=== PATIENT | female | born 1960 | race Caucasian/White ===

== ENCOUNTER → 2016-06-02 | Outpatient (CLI) | payer BC ==
--- NOTE | 2016-06-02 16:00 | MR ---
MR lumbar spine wo con Radiculopathy, lumbosacral region Multiplanar, multiecho imaging of the lumbar spine was obtained without contrast on a 3 Barbara magnet. REFERENCE:None. FINDINGS: The paraspinal soft tissues are unremarkable. There is a moderate levoscoliosis. Vertebral body height is maintained. There is a degenerative grade 1 spondylolisthesis of L3 on L4 an d to a lesser extent L4 on L5. Alignment is otherwise maintained. Cord signal is maintained. The conus ends normally at the level of the mid body of L1. At T12-L1, there is mild capsulitis within the facets. At L1-2, there is mild disc space loss. The intervertebral foramina appear reasonably well-maintained . There is no significant compressive discopathy. There is mild hypertrophic changes within the facet s. There is minimal trefoiling of the thecal sac. At L2-3, the intervertebral foramina are reasonably well-maintained. There is disc space loss and dis c desiccation. There is a broad-based disc displacement effacing the thecal sac. There is moderate hy pertrophic changes within the facets. There is mild central canal stenosis. At L3-4, there is disc space loss and disc desiccation. The intervertebral foramina appear well maint ained. There is a grade 1 degenerative spondylolisthesis of L3 on L4. There is a prominent pseudodisc . There are marked hypertrophic changes in the facets. There is moderate central canal stenosis. At L4-5, the intervertebral foramina are reasonably well-maintained. There is a minimal grade 1 spond ylolisthesis of L4 on L5. There is a pseudodisc. There are moderate hypertrophic changes in the facet s. There is moderate central canal stenosis. At L5-S1, there is disc space loss and disc desiccation. Intervertebral foramina appear well maintain ed. There is a right paracentral disc protrusion/extrusion abutting the exiting L5 nerve root on the right and displacing the traversing S1 nerve root on the right. There are only mild degenerative landry ges in the facets. IMPRESSION: 1. DIFFUSE DEGENERATIVE DISC DISEASE AND FACET ARTHROPATHY. 2. VARYING DEGREES OF CENTRAL CANAL COMPROMISE, MOST MARKED AT L3-4. 3. RIGHT PARACENTRAL PROTRUSION/EXTRUSION, L5-S1 ABUTTING THE EXITING L5 NERVE ROOT ON THE RIGHT AND DISPLACING THE TRAVERSING S1 NERVE ROOT ON THE RIGHT. 4. GRADE 1 DEGENERATIVE SPONDYLOLISTHESIS OF L3 ON L4 AND TO A LESSER EXTENT L4 AND L5.
== END | disposition home or self-care (01) ==
LOC: RADMRIMAIN 14:54
PROVIDERS: ATTEND Psychiatry & Neurology Neurology
DX: M51.16 Intervertebral disc disorders with radiculopathy, lumbar region (principal); M43.16 Spondylolisthesis, lumbar region
CPT/HCPCS: 72148

== ENCOUNTER → 2016-09-24 | Outpatient (CLI) | payer BC ==
[2016-09-24 08:38] LABS: Basophils % (A) 1 %; CH 30.7; CHCM 32.7; Eosinophils # (A) 0.2 k/uL (0-0.7); Eosinophils % (A) 4 %; HCT 42.5 % (34.0-46.0); HDW 2.16; HGB 13.8 gm/dL (11.4-16.0); Luc # (Auto) 0.09; Luc % (Auto) 2; Lymphocytes % (A) 26 %; MCH 30.6 pg (25.0-35.0); MCHC 32.4 g/dL (31.0-37.0); MCV 94.4 fL (80.0-100.0); Mean Platelet Volume 6.7; Monocytes # (A) 0.3 k/uL (0-1.0); Monocytes % (A) 7 %; Neutrophils # (A) 2.3 k/uL (1.3-7.7); Neutrophils % (A) 60 %; RDW 13.5 % (11.5-15.5); WBC 3.9 k/uL (3.8-10.6); WBC (Perox) 3.97
[2016-09-24 08:55] LABS: ALT 39 U/L (9-52); AST 25 U/L (14-36); Alkaline Phosphatase 54 U/L (38-126); Anion Gap 9 mmol/L; Blood Urea Nitrogen 25 mg/dL (7-17); Calcium 7.3 mg/dL (8.4-10.2); Carbon Dioxide 31 mmol/L (22-30); Chloride 104 mmol/L (98-107); Glucose 85 mg/dL (74-99); Non-African American GFR(MDRD) >60 (>60 ml/min/1.73 sqM); Potassium 3.5 mmol/L (3.5-5.1); Sodium 144 mmol/L (137-145); Total Bilirubin 0.5 mg/dL (0.2-1.3); Total Protein 7.1 g/dL (6.3-8.2)
== END | disposition home or self-care (01) ==
LOC: LABWHC1 08:05
PROVIDERS: ATTEND Psychiatry & Neurology Neurology
DX: Z51.81 Encounter for therapeutic drug level monitoring (principal); Z79.899 Other long term (current) drug therapy
CPT/HCPCS: 36415; 80053; 80175; 85025

== ENCOUNTER → 2017-09-21 | Outpatient (CLI) | payer BC ==
--- NOTE | 2017-09-21 19:13 | CONS ---
CONSULTATION REASON FOR THE CONSULTATION: Sleep apnea. This is a 57-year-old female patient who is coming in with chief complaints of excessive sleepiness and tiredness and fatigue during the day. The patient reports that she has been snoring loudly and she wakes up gasping. She is also noticing that she is waking up frequently in the middle of the night to go to the bathroom and urinate. On a few instances she has woken up gasping for air and she has coughed, and it was quite a scary experience where the patient was having a choking/gasping sensation and she was becoming tachycardic. She has gained about 15 pounds over the past few years. She has loud snoring. Her current Dearing score is 3. She does not take naps during the day, although she feels very tired and sleepy. She prefers to sleep on her side. She has no sleep paralysis, no hallucinations, no cataplexy, no substance abuse, no head trauma. She has been involved in a previous history of CVA. She had tonsillectomy at a young age. PAST MEDICAL HISTORY: 1. CVA back in 2005 with some residual issues with balance and memory. 2. Hypertension. 3. Hypothyroidism. 4. Environmental allergies. 5. Seizure disorder. SURGICAL HISTORY: 1. Tonsillectomy. 2. Thyroidectomy. DRUG ALLERGIES: 1. PENICILLINS cause hives. 2. MOLDS. 3. DUST. 4. POLLEN. OUTPATIENT MEDICATION LIST: 1. Lamictal 150 mg p.o. twice a day. 2. Hydrochlorothiazide one and a half tablets of 25 mg 1 tablet a day. 3. Potassium 20 mEq p.o. daily. 4. half a tablet 3 times a day. 5. Calcitriol 0.25 mg twice a day. 6. Vitamin D twice a day. 7. 150 mg once a day. 8. Synthroid 120 mcg p.o. daily. 9. Aspirin 81 mg p.o. daily. 10.Aggrenox 200/25 one tablet twice a day. 11.Norvasc 10 mg p.o. daily. SOCIAL HISTORY: Nonsmoker. No history of alcoholism. No history of IV drugs. FAMILY HISTORY: Negative. The patient does not have any kids. No history of any sleep breathing disorder that runs in the family. REVIEW OF SYSTEMS: Twelve-point review of systems was done. Positive findings are all mentioned above in the history of present illness. In addition, no reported history of insomnia. Active nocturia, as the patient gets up at least 3 times to go to the bathroom and her sleep is fragmented in this regard. She has no grinding of the teeth. No sleepwalking. No anxiety or panic attacks. No palpitation. No heartburn. No restlessness in the lower extremities. PHYSICAL EXAMINATION: BP is 155/85, pulse 86, respirations 14, temperature 97.9, saturation 97% on room air. Height is 5 feet 7 inches, weight 174. Neck size is 13 inches. Dearing score is 3. BMI is 27.2. GENERAL APPEARANCE: Calm, comfortable. Head is atraumatic, normocephalic. Neck is short, supple. Crowding of posterior pharynx. Mallampati class 4. No goiter or neck masses. LUNGS: Clear to auscultation. Heart sounds are regular rate and rhythm. Normal S1, S2. No S3. No murmurs. ABDOMEN: Soft, nontender. No organomegaly. EXTREMITIES: No edema. No cyanosis or clubbing. IMPRESSION: 1. Hypersomnia, under investigation. Rule out obstructive sleep apnea. 2. Episodic gasping and nocturnal apneas. Rule out JESSEE. 3. Cerebrovascular accident with some residual memory and balance deficits. 4. Hypertension. 5. Hypothyroidism. 6. Environmental allergies. 7. Seizure disorder. PLAN: 1. Encourage weight loss. 2. Sleep in a sidewise body position. 3. Implement good sleep hygiene measures. 4. Proceed with a screening polysomnogram, looking for any significant sleep apnea, and treat accordingly. MMODL / IJN: [id number] /
== END | disposition home or self-care (01) ==
LOC: SLEEP 16:10
PROVIDERS: ATTEND Internal Medicine Critical Care Medicine
DX: G47.10 Hypersomnia, unspecified (principal); R06.83 Snoring; I69.311 Memory deficit following cerebral infarction; I10 Essential (primary) hypertension; E03.9 Hypothyroidism, unspecified; G40.909 Epilepsy, unspecified, not intractable, without status epilepticus; J30.1 Allergic rhinitis due to pollen; Z98.890 Other specified postprocedural states; Z91.048 Other nonmedicinal substance allergy status; Z88.0 Allergy status to penicillin; Z79.82 Long term (current) use of aspirin; Z79.899 Other long term (current) drug therapy
CPT/HCPCS: 99211

== ENCOUNTER → 2018-01-17 | Outpatient (CLI) | payer BC ==
--- NOTE | 2018-01-17 17:44 | SFUN ---
SLEEP CENTER FOLLOW UP NOTE DATE OF SERVICE: 01/17/2018. HISTORY: A 57-year-old female patient diagnosed as having severe obstructive sleep apnea, coming in for a compliancy check. The patient was diagnosed having JESSEE with an AHI of 32, and she was given CPAP at a pressure of 7 cm of water. On today's evaluation, the patient reports marked improvement in her symptoms in general. Her sleep quality is improved and she is waking up much more alert and refreshed during the day. Nevertheless, I looked at the compliance data the patient is having excessive amount of leaks in the order of 68 L/minute while being on CPAP therapy. She is using her CPAP every night, using CPAP around 100% of the time especially for CPAP use of more than 4 hours. Average CPAP is around 5.2 hours per night. Leak factor 68 L/minute and her AHI while on treatment is down to 18. I think the residual obstructive events are occurring because the patient is leaking excessively. Meanwhile, the patient is trying to lose weight. Her [place] score is down to 2. She is feeling refreshed and alert during the day. She is currently using the Air Touch full face mask. REVIEW OF SYSTEMS: A 12-point review of system was done. Improving, less somnolent and sleepy. No sleepwalking or sleep talking. No nighttime shortness of breath, chest pain, heartburn or any other abnormalities. PHYSICAL EXAMINATION: BP is 132/89, pulse 84, respirations 14, temperature is 97.8, weight is 174, [place] Score is 2, saturation 97% on room air. GENERAL APPEARANCE: Calm, comfortable. HEAD: Normocephalic, atraumatic. NECK: Mallampati class IV. There is no goiter, no neck mass. LUNGS: Clear to auscultation. HEART: Sounds regular rhythm. Normal S1, S2. No S3. No murmurs. ABDOMEN: Soft, nontender. No organomegaly. EXTREMITIES: No edema. No cyanosis or clubbing. NEUROLOGIC: Alert and oriented x3. No focal neurological deficits. PSYCHIATRIC: Negative for anxiety or depression. IMPRESSION: 1. Severe obstructive sleep apnea with an apnea hypopnea index of 32, currently on CPAP pressure of 7. 2. Excessive leaks around the mask, in the order of 68 L/minute. 3. Excessive daytime sleepiness, recovered, and the patient Green[place] score is down to 2. 4. Cerebrovascular accident with some residual memory deficits and balance deficits. 5. Hypertension. 6. Hypothyroidism. 7. Seizure disorder. 8. Chronic allergies. PLAN: 1. Proceed with CPAP therapy at a pressure of 7 cm of water. 2. The patient was initially offered Simplus full-face mask, currently is using the Air Touch full face mask and I also offered her the DreamWear full face mask. She will decide according what will be her mask of choice. I would like to bring her AHI less than 5 and reduce her amount of leak. 3. Weight loss. 4. I will see her back in 2 months' time in followup for a compliancy check. MMODL / IJN: [id number] /
== END | disposition home or self-care (01) ==
LOC: SLEEP 15:35
PROVIDERS: ATTEND Internal Medicine Critical Care Medicine
DX: G47.33 Obstructive sleep apnea (adult) (pediatric) (principal); I69.311 Memory deficit following cerebral infarction; I10 Essential (primary) hypertension; E03.9 Hypothyroidism, unspecified; G40.909 Epilepsy, unspecified, not intractable, without status epilepticus; T78.40XA Allergy, unspecified, initial encounter; I69.398 Other sequelae of cerebral infarction; Z99.89 Dependence on other enabling machines and devices

== ENCOUNTER → 2018-03-28 | Outpatient (CLI) | payer BC ==
--- NOTE | 2018-03-28 19:10 | PN ---
PROGRESS NOTE This is a 57-year-old female patient coming in for followup regarding her JESSEE treatment. This is a follow-up compliancy check. During her last visit I noted that the patient was still having residual JESSEE while on treatment and she had an increased leak factor. I was able to fit her with a DreamWear full-face mask. I asked her to come back for a followup. On today's evaluation she still has increased leak of 48 L/minute and her AHI while on treatment is 21.4. She is on CPAP pressure of 7 cm of water. Despite this increased leak, the patient tells me that she has been doing well and she does not recognize any leaks around the mask. She is still not fully refreshed and she is having some residual tiredness and sleepiness during the day. The rest of the compliance data showed that the patient had very compliant use, with an average use of 6.5 hours per night. Her AHI while on treatment is 21. Her CPAP use for more than 4 hours is 29 out of 30. I checked her machine at length, and I think the increased recorded leak we are seeing on the machine is attributed to the fact that the patient has been set to a nose mask rather than a full-face mask. I changed the setting, and this should improve the measurement of the leak factor. At the same time, I switched the patient to an APAP mode with a minimum pressure of 5, maximum pressure of 12, to allow the patient to be treated with a higher pressure as needed to bring her AHI to less than 5. HER CURRENT VITALS: BP 148/80, pulse 80, respirations 16, temperature 98.0, saturation 97% on room air. BMI 28.3, weight 181, height 5 feet 7 inches. GENERAL APPEARANCE: Calm, comfortable. Head is atraumatic, normocephalic. Neck is supple. No JVD. No goiter or neck masses. LUNGS: Diminished; otherwise clear. HEART: Heart sounds are regular rate and rhythm. Normal S1, S2. No S3, S4. No murmurs. ABDOMEN: Soft, non-tender. No organomegaly. EXTREMITIES: No edema. No cyanosis or clubbing. NEUROLOGIC: Alert and oriented x3. No focal neurological deficits. PSYCHIATRIC: There is no anxiety or depression. IMPRESSION: 1. Obstructive sleep apnea, symptomatic, severe, apnea/hypopnea index of 32. Treatment has been suboptimal at the pressure of 7 cm of water because of increased leaks and residual JESSEE while on treatment. 2. Based on all this, I switched this patient to an APAP, minimum pressure of 5, maximum pressure of 12. I changed the machine setting to full-face mask mode, and this should correct and measure the leak factor more accurately. 3. She will see me back in 6 to 8 weeks' time for followup. MMODL / IJN: [id number] /
== END | disposition home or self-care (01) ==
LOC: SLEEP 15:19
PROVIDERS: ATTEND Internal Medicine Critical Care Medicine
DX: G47.33 Obstructive sleep apnea (adult) (pediatric) (principal); Z99.89 Dependence on other enabling machines and devices

== ENCOUNTER → 2018-06-06 | Outpatient (CLI) | payer BC ==
--- NOTE | 2018-06-06 22:16 | PN ---
PROGRESS NOTE This is a followup regarding obstructive sleep apnea. This is a 57-year-old female patient diagnosed having obstructive sleep apnea. The patient was being seen for a routine check back in March of 2018, and at that time it was noted that the patient was having a significant amount of apneas while on treatment, and her AHI was up to 21.4. Back then she was being treated with a CPAP pressure of 7 cm of water. She was not fully treated and she was having some degree of tiredness and sleepiness during the day. Based on all this, I switched the patient to an APAP mode with a minimum pressure of 5 and a maximum pressure of 12. I also offered her a full-face mask. I asked the patient to come back to see me in followup for another compliancy check. On today's evaluation, the patient is feeling much better. In fact, her tiredness, sleepiness and fatigue have completely subsided and the patient is feeling great, without any hypersomnia or sleepiness during the day. AHI while on treatment is down to 7.3. I checked the compliance data again, and over the past 30 days the patient has utilized her CPAP machine every night with an average of 6.7 hours per night. The average P90 pressure is at 10.7 with a leak factor of 42 L/minute. Despite the leak, the patient feels great. She reports improvement. Her sleep quality has improved and she is much more refreshed and alert during the day. REVIEW OF SYSTEMS: Twelve-point review of systems was done. Positive findings were all mentioned above in the history of present illness. No nocturnal heartburn, shortness of breath, chest pain. No leg kicks. No restlessness in the lower extremities. No sleep paralysis. No hallucinations. No cataplexy. No anxiety. No depression. No panic. No claustrophobia. PHYSICAL EXAMINATION: BP 138/88, pulse 88, respirations 16, temperature 98.2, saturation 97% on room air. Weight is 179. Height is 5 feet 6 inches. GENERAL APPEARANCE: Calm, comfortable. No acute distress. Head is atraumatic, normocephalic. NECK: Supple. No JVD. No goiter or neck mass. LUNGS: Diminished; otherwise clear. Heart sounds are regular rate and rhythm. Normal S1, S2. No S3, S4. No murmurs. ABDOMEN: Soft, nontender. No organomegaly. EXTREMITIES: No edema. No cyanosis or clubbing. NEUROLOGIC: Alert and oriented x3. No focal neurological deficits. Psychiatrically, no anxiety or depression. IMPRESSION: 1. Obstructive sleep apnea, severe, with apnea/hypopnea index of 32. The patient is on APAP, minimum of 5, maximum of 12. The patient has better control of her obstructive sleep apnea. The patient is feeling much more refreshed and alert compared to her last evaluation here in my office. 2. Hypersomnia, recovered. Fontana score is down to 1. 3. Snoring, recovered. PLAN: 1. Continue APAP mode, minimum of 5, maximum of 12. 2. Continued DreamWear full-face mask. 3. Encourage weight loss. 4. Implement good sleep hygiene measures. 5. Treatment is successful. Will monitor the AHI while on treatment. See me back in a year's time in followup. No other changes from today's evaluation. MMODL / IJN: [id number] /
== END ==
LOC: SLEEP 15:50
PROVIDERS: ATTEND Internal Medicine Critical Care Medicine
DX: G47.33 Obstructive sleep apnea (adult) (pediatric) (principal); Z99.89 Dependence on other enabling machines and devices

== ENCOUNTER 2018-06-16 23:33 | Emergency (ER) | payer BC ==
[2018-06-16 23:59] VITALS: TEMP 98
[2018-06-17] MEDS ORDERED: DIPH,PERTUS(ACELL)TETVAC-LF 0.5 ML VIAL IM ONE (00:21)
[2018-06-17] MEDS ORDERED: DOXYCYCLINE 100 MG CAP PO STA (00:22)
--- NOTE | 2018-06-17 00:29 | ED ---
General Adult HPI - General Chief complaint: Animal Bite Stated complaint: Cat Bite L Hand Time Seen by Provider: 06/17/18 00:03 Source: patient, RN notes reviewed Mode of arrival: ambulatory Limitations: no limitations - History of Present Illness Initial comments: 57-year-old female presents to the emergency department for a chief complaint of cat bite occurring approximately one hour ago. Patient states she was trying to clean out her cat's ears when she actually stepped on its foot. She states she was holding its head and the cat bit her in the left hand. She states it did bleed and she cleaned it out thoroughly at home. Patient is not up-to-date on tetanus. Patient states the cat is up-to-date on immunizations.Patient has no other complaints at this time including shortness of breath, chest pain, abdominal pain, nausea or vomiting, headache, or visual changes. - Related Data Previous Rx's Medication Instructions Recorded Doxycycline [Vibramycin] 100 mg PO BID 14 Days capsule 06/17/18 Allergies Allergy/AdvReac Type Severity Reaction Status Date / Time Penicillins Allergy Rash/Hives Verified 06/16/18 23:59 Review of Systems ROS Statement: Those systems with pertinent positive or pertinent negative responses have been documented in the HPI. ROS Other: All systems not noted in ROS Statement are negative. Past Medical History Past Medical History: CVA/TIA History of Any Multi-Drug Resistant Organisms: None Reported Past Surgical History: No Surgical Hx Reported Past Psychological History: No Psychological Hx Reported Smoking Status: Never smoker Past Alcohol Use History: None Reported Past Drug Use History: None Reported General Exam Limitations: no limitations General appearance: alert, in no apparent distress Head exam: Present: atraumatic, normocephalic, normal inspection Eye exam: Present: normal appearance, PERRL, EOMI. Absent: scleral icterus, conjunctival injection, periorbital swelling ENT exam: Present: normal exam, mucous membranes moist Neck exam: Present: normal inspection, full ROM. Absent: tenderness, meningismus, lymphadenopathy Respiratory exam: Present: normal lung sounds bilaterally. Absent: respiratory distress, wheezes, rales, rhonchi, stridor Cardiovascular Exam: Present: regular rate, normal rhythm, normal heart sounds. Absent: systolic murmur, diastolic murmur, rubs, gallop, clicks Extremities exam: Present: full ROM (Full range of motion noted of the left hand ), normal capillary refill (capillary refill less than 2 seconds and radial pulse 2+ in upper extremities bilaterally ), other (Patient has 2 puncture wounds noted to the left palmar thumb. Superficial abrasion noted to the left dorsal thumb) Neurological exam: Present: alert, oriented X3, CN II-XII intact Psychiatric exam: Present: normal affect, normal mood Course Vital Signs 06/16/18 23:55 Temperature 98 F Pulse Rate 103 H Respiratory 20 Rate Blood Pressure 118/70 O2 Sat by Pulse 97 Oximetry Medical Decision Making - Medical Decision Making 57-year-old female presents to the emergency department for a chief complaint of cat bite. There are 2 small puncture wounds noted on the left palmar thumb. Patient does have full range of motion. Wound was cleaned thoroughly here. Patient updated on tetanus. Given patient's penicillin ALLERGY she was given doxycycline for this. Patient will follow up with primary care in 1-2 days and return if she has any worsening symptoms. Disposition Clinical Impression: Cat bite Disposition: HOME SELF-CARE Condition: Good Instructions (If sedation given, give patient instructions): Animal Bite (ED) Additional Instructions: Please take antibiotic as directed. Please follow-up with primary care in 1-2 days. Monitor for signs of infection such as spreading or streaking redness, drainage, or fever and return immediately if these occur. Please return here to the emergency department if you have any worsening symptoms. Prescriptions: Doxycycline [Vibramycin] 100 mg PO BID 14 Days capsule Is patient prescribed a controlled substance at d/c from ED?: No Referrals: vKng Villagomez MD [Primary Care Provider] - 1-2 days Time of Disposition: 00:27
[2018-06-17 00:50] VITALS: BP 148/99; PULSE 89; RESP 18
== END 2018-06-17 00:50 | disposition home or self-care (01) ==
LOC: EC 23:33
DX: S61.432A Puncture wound without foreign body of left hand, initial encounter (principal); S60.312A Abrasion of left thumb, initial encounter; Z23 Encounter for immunization; Z88.0 Allergy status to penicillin; Z86.73 Personal history of transient ischemic attack (TIA), and cerebral infarction without residual deficits; W55.01XA Bitten by cat, initial encounter
CPT/HCPCS: 90471; 90715; 99282

== ENCOUNTER → 2018-06-22 | Outpatient (CLI) | payer BC ==
--- NOTE | 2018-06-23 09:56 | MM ---
Reason for exam: screening (asymptomatic). Last mammogram was performed 8 years and 6 months ago. History: Patient is nulliparous. Took hormonal contraceptives for 15 years beginning at age 20. Physical Findings: A clinical breast exam by your physician is recommended on an annual basis and results should be correlated with mammographic findings. MG Screening Mammo w CAD Bilateral CC and MLO view(s) were taken. XCCL view(s) were taken of the left breast. Prior study comparison: December 31, 2009, bilateral digital screening mammogram. June 25, 2008, bilateral diagnostic digital mammog. The breast tissue is heterogeneously dense. This may lower the sensitivity of mammography. No suspicious abnormality. No significant changes when compared with prior studies. ASSESSMENT: Negative, BI-RAD 1 RECOMMENDATION: Routine screening mammogram of both breasts in 1 year.
== END | disposition home or self-care (01) ==
LOC: RADMAMWWP 08:04
PROVIDERS: ATTEND Internal Medicine
DX: Z12.31 Encounter for screening mammogram for malignant neoplasm of breast (principal)
CPT/HCPCS: 77067

== ENCOUNTER 2018-12-05 14:35 | Emergency (ER) | payer BC, OTHER ==
[2018-12-05 14:49] VITALS: BP 132/84; PULSE 98; RESP 18; TEMP 98.6
[2018-12-05] MEDS ORDERED: IBUPROFEN 600 MG TAB PO STA (15:06)
--- NOTE | 2018-12-05 15:29 | XR ---
EXAMINATION TYPE: XR knee complete RT DATE OF EXAM: 12/05/2018 CLINICAL HISTORY: Pain after fall injury today. TECHNIQUE: Three views of the right knee are obtained. COMPARISON: Knee x-ray July 21, 2009. FINDINGS: There is no acute fracture/dislocation evident in right knee. Moderate to severe narrowing and spurring medial tibial femoral compartment shows progression from 2010 study. Mild to moderate n arrowing with moderate to severe spurring patellofemoral compartment shows progression from 2010 stud y. Some increased fluid signal Hoffa's fat pad noted. Correlate for underlying fat pad impingement sy ndrome. Suspect small suprapatellar joint effusion with increased soft tissue density at this level. IMPRESSION: There is no acute fracture or dislocation in the right knee.
--- NOTE | 2018-12-05 15:35 | XR ---
Right foot HISTORY: Trauma and pain 3 views the right foot Marked osteoarthritic changes present at the first metatarsophalangeal joint. Alignment is maintained . There is a plantar calcaneus spur. There is soft tissue swelling present. Oblique image shows quest ionable irregularity of the interphalangeal joint medially which is thought to be artifactual, correl ate for point tenderness. IMPRESSION: No fracture or dislocation is evident. Findings at the first digit interphalangeal joint not felt likely represent fracture, correlate as described.
--- NOTE | 2018-12-05 16:11 | ED ---
Lower Extremity Injury HPI - General Chief Complaint: Extremity Injury, Lower Stated Complaint: Fall, knee pain, [facility] Time Seen by Provider: 12/05/18 14:57 Source: patient Mode of arrival: wheelchair Limitations: no limitations - History of Present Illness Initial Comments: 58-year-old female presenting for right knee and right foot pain. Patient states around 11:30 AM she discounted steps falling forward. She states that she hit her right anterior knee on the ground and twisted her right foot. Patient states that she has pain in these areas. Patient states she has been able to weight-bear and ambulate she states she can extend at the knee. Patient denies a dislocation of the knee denies numbness tingling or loss sensation. Patient denies any injury to the head and neck upper extremities suggest loss of consciousness or back pain. Remaining review of systems negative. General: The patient is awake and alert, in no distress, and does not appear acutely ill. Eye: +3 mm pupils are equal, round and reactive to light, extra-ocular movements are intact. No nystagmus. There is normal conjunctiva bilaterally. No signs of icterus. Ears, nose, mouth and throat: There are moist mucous membranes and no oral lesions. Neck: The neck is supple, there is no tenderness or JVD. Cardiovascular: There is a regular rate and rhythm. No murmur, rub or gallop is appreciated. Respiratory: Lungs are clear to auscultation, respirations are non-labored, breath sounds are equal. No wheezes, stridor, rales, or rhonchi. Musculoskeletal: Upon inspection of the knees bilaterally there is no severe bruising soft tissue swelling abrasions or lacerations. Equal comparison. Patient has bruising on the plantar aspect of the right foot upon gross inspection of the feet bilaterally. Patient is no point localized tenderness over the second MTP joint. She is able to fully range at the knees bilaterally complaint discomfort range of motion of the right knee however no limitations. Strength is preserved and sensation is intact. Proximal distal to injury sites. +2 dorsalis pedis pulses bilaterally Neurological: A&O x 3. CN II-XII intact grossly, There are no obvious motor or sensory deficits. Coordination appears grossly intact. Speech is normal. Skin: Skin is warm and dry and no rashes or lesions are noted. Psychiatric: Cooperative, appropriate mood & affect, normal judgment. 58-year-old female presenting her right foot right knee pain. Patient neurovascularly intact upon arrival. Extensor mechanism intact and patient has been ambulatory since injury. Imaging studies revealed no acute osseous injury. However physical examination there is noted bruising over the plantar aspect of the right foot. This finding is concerning for Lisfranc injury although patient has no specific point localized tenderness in the area. Patient was placed in a posterior mold splint and given nonweightbearing instructions. The importance of nonweightbearing was discussed the patient verbalizes understanding. Patient states she will use a walker to nonweightbearing she states she cannot use crutches. I feel she may be a fall risk. I discussed the importance of following up with orthopedic surgery within the next week. Patient verbalized understanding. I discussed the case maintained by Dr. Osborne is agreeable to this care plan at discharge at this time. Itching studies were reviewed personally. - Related Data Home Medications Medication Instructions Recorded Confirmed Acarbose [Precose] 12.5 mg PO TID 12/05/18 12/05/18 Aspirin EC [Ecotrin Low Dose] 81 mg PO DAILY 12/05/18 12/05/18 Calcitriol [Rocaltrol] 0.25 mcg PO BID 12/05/18 12/05/18 Calcium Carb/Vitamin D3/Vit K1 1 tab PO BID 12/05/18 12/05/18 [Citracal Soft Chew] Cetirizine HCl [Zyrtec] 10 mg PO DAILY 12/05/18 12/05/18 Dipyridamole-Aspirin 200-25 mg 1 tab PO BID 12/05/18 12/05/18 [Aggrenox] Hydrochlorothiazide [Hydrodiuril] 37.5 mg PO DAILY 12/05/18 12/05/18 Levothyroxine Sodium [Synthroid] 125 mcg PO SUMOTUWETHFR 12/05/18 12/05/18 Levothyroxine Sodium [Synthroid] 150 mcg PO SA 12/05/18 12/05/18 Potassium Chloride ER [K-Dur 20] 20 meq PO BID 12/05/18 12/05/18 amLODIPine [Norvasc] 10 mg PO DAILY 12/05/18 12/05/18 lamoTRIgine [LaMICtal] 150 mg PO BID 12/05/18 12/05/18 Allergies Allergy/AdvReac Type Severity Reaction Status Date / Time Penicillins Allergy Rash/Hives Verified 12/05/18 15:07 Review of Systems ROS Statement: Those systems with pertinent positive or pertinent negative responses have been documented in the HPI. ROS Other: All systems not noted in ROS Statement are negative. Past Medical History Past Medical History: CVA/TIA, Thyroid Disorder History of Any Multi-Drug Resistant Organisms: None Reported Past Surgical History: Orthopedic Surgery Additional Past Surgical History / Comment(s): thyroidecomy Past Psychological History: No Psychological Hx Reported Smoking Status: Never smoker Past Alcohol Use History: None Reported Past Drug Use History: None Reported General Exam Limitations: no limitations Course Vital Signs 12/05/18 14:47 Temperature 98.6 F Pulse Rate 98 Respiratory 18 Rate Blood Pressure 132/84 O2 Sat by Pulse 99 Oximetry Disposition Clinical Impression: Right knee pain, Right foot pain, Fall Disposition: HOME SELF-CARE Condition: Good Instructions (If sedation given, give patient instructions): Foot Fracture in Adults (ED) Additional Instructions: Please use medication as discussed. Please follow-up with orthopedic surgery in the next week. NO WEIGHTBEARING ON THE RIGHT FOOT. Please return to emergency room if the symptoms increase or worsen or for any other concerns. Is patient prescribed a controlled substance at d/c from ED?: No Referrals: Palmer Navas MD [Primary Care Provider] - 1-2 days Rodri Núñez MD [Medical Doctor] - 1-2 days Time of Disposition: 16:09
== END 2018-12-05 16:40 | disposition home or self-care (01) ==
LOC: EC 14:35
DX: S90.31XA Contusion of right foot, initial encounter (principal); M25.561 Pain in right knee; E07.9 Disorder of thyroid, unspecified; Z88.0 Allergy status to penicillin; Z79.890 Hormone replacement therapy; Z79.82 Long term (current) use of aspirin; Z79.899 Other long term (current) drug therapy; Z86.73 Personal history of transient ischemic attack (TIA), and cerebral infarction without residual deficits; W01.0XXA Fall on same level from slipping, tripping and stumbling without subsequent striking against object, initial encounter; X50.1XXA Overexertion from prolonged static or awkward postures, initial encounter; Y99.0 Civilian activity done for income or pay
CPT/HCPCS: 29515; 99283

== ENCOUNTER → 2020-01-04 | Outpatient (CLI) | payer BC | END | disposition home or self-care (01) | LOC: LABPAT 07:44 | PROVIDERS: ATTEND Orthopaedic Surgery | DX: Z01.818 Encounter for other preprocedural examination (principal); M17.12 Unilateral primary osteoarthritis, left knee; S83.242A Other tear of medial meniscus, current injury, left knee, initial encounter | CPT/HCPCS: 93005 ==

== ENCOUNTER → 2020-01-21 | Outpatient (CLI) | payer BC ==
--- NOTE | 2020-01-21 16:12 | US ---
EXAMINATION TYPE: US venous doppler duplex LE LT DATE OF EXAM: 01/21/2020 3:52 PM COMPARISON: NONE CLINICAL HISTORY: M25.562 PAIN LT KNEE,I80.9 PHLEBITIS. SIDE PERFORMED: Left TECHNIQUE: The lower extremity deep venous system is examined utilizing real time linear array sonog maximilian with graded compression, doppler sonography and color-flow sonography. VESSELS IMAGED: External Iliac Vein (EIV) Common Femoral Vein Deep Femoral Vein Greater Saphenous Vein * Femoral Vein Popliteal Vein Small Saphenous Vein * Proximal Calf Veins (* superficial vessels) Left Leg: Negative for DVT Complex fluid collection visualized measuring 11.2 x 3.0 x 3.2 cm extending from left knee to left ca lf IMPRESSION: No evidence for DVT at this time.
== END | disposition home or self-care (01) ==
LOC: RADUSWWP 15:23
PROVIDERS: ATTEND Orthopaedic Surgery
DX: M25.562 Pain in left knee (principal); S83.242D Other tear of medial meniscus, current injury, left knee, subsequent encounter; Z48.89 Encounter for other specified surgical aftercare; I80.9 Phlebitis and thrombophlebitis of unspecified site; Z96.652 Presence of left artificial knee joint

== ENCOUNTER → 2020-05-22 | Outpatient (CLI) | payer BC | END | disposition home or self-care (01) | LOC: LABWHC1 12:47 | PROVIDERS: ATTEND Internal Medicine | DX: R05 Cough (principal); R50.9 Fever, unspecified; R06.02 Shortness of breath | CPT/HCPCS: 87502; U0003; C9803 ==

== ENCOUNTER → 2020-06-03 | Outpatient (CLI) | payer BC ==
--- NOTE | 2020-06-03 10:19 | CT ---
EXAMINATION TYPE: CT chest w con DATE OF EXAM: 06/03/2020 COMPARISON: None HISTORY: 59-year-old female Shortness of breath and cough TECHNIQUE: Contiguous axial scanning of the chest after the administration of 100 mL of Isovue 300. Coronal/sagittal reconstructions performed. CT DLP: 254.60mGycm. Automatic exposure control utilized for a dose reduction. FINDINGS: Heart normal size without pericardial effusion. Aorta and normal caliber with conventional vessel branching anatomy and minimal atherosclerotic arch calcifications. 7 mm lower right paratracheal lymph node. 7 mm lower left paraesophageal lymph node. No thoracic lymp hadenopathy by CT size criteria. Some streaky atelectasis at the right base. No consolidation or pleural effusion. Small hiatal hernia. Visualized upper abdomen shows no gross abnormality. Bones: Degenerative changes of the left shoulder. Moderate degenerative disc disease mid to lower tho racic spine. IMPRESSION: No acute pulmonary process. Small hiatal hernia.
== END | disposition home or self-care (01) ==
LOC: RADCTMAIN 08:41
PROVIDERS: ATTEND Internal Medicine
DX: K44.9 Diaphragmatic hernia without obstruction or gangrene (principal); Z88.0 Allergy status to penicillin
CPT/HCPCS: 71260; Q9967

== ENCOUNTER → 2020-07-08 | Outpatient (CLI) | payer BC ==
--- NOTE | 2020-07-08 16:55 | CT ---
EXAMINATION TYPE: CT angio chest DATE OF EXAM: 07/08/2020 4:43 PM COMPARISON: 06/03/2020. HISTORY: Dyspnea, elevated d-dimer CT DLP: 228.2 mGycm Automated exposure control for dose reduction was used. CONTRAST: CTA scan of the thorax is performed with IV Contrast, patient injected with 80 mL of Isovue 370, pulm onary embolism protocol. MIP images are created and reviewed. FINDINGS: LUNGS: The lungs are grossly clear, there is no concerning parenchymal mass or nodule identified. T here is no pleural effusion or pneumothorax seen. The tracheobronchial tree is patent. MEDIASTINUM: There is satisfactory enhancement of the pulmonary artery and its branches, there is no CT evidence for pulmonary embolism. There are no greater than 1 cm hilar or mediastinal lymph nodes. No pericardial effusion is seen. OTHER: No additional significant abnormality is seen. IMPRESSION: NO ACUTE PE OR OTHER CARDIOPULMONARY ABNORMALITY.
== END | disposition home or self-care (01) ==
LOC: RADCTMAIN 16:13
PROVIDERS: ATTEND Internal Medicine
DX: R06.00 Dyspnea, unspecified (principal); R79.1 Abnormal coagulation profile
CPT/HCPCS: 71275; Q9967

== ENCOUNTER → 2020-07-08 | Outpatient (CLI) | payer BC | END | disposition home or self-care (01) | LOC: LABWHC1 14:41 | PROVIDERS: ATTEND Internal Medicine | DX: B34.9 Viral infection, unspecified (principal); R06.02 Shortness of breath | CPT/HCPCS: 36415; 85379 ==

== ENCOUNTER → 2021-01-27 | Outpatient (CLI) | payer BC ==
--- NOTE | 2021-01-27 15:49 | PN ---
PROGRESS NOTE Samia is a 60-year-old, coming in after 2 half years of interruption regarding obstructive sleep apnea. She has severe disease with an AHI of 32, and she is on a CPAP at a minimum pressure of 4, maximum pressure of 12. Over the years, the patient remains very compliant with her CPAP machine. Based on a 30-day compliancy, the patient has demonstrated at least 6 hours of CPAP use per night with a leak of 54 L/minute and AHI is down to 7.4 while on treatment without any central events noted. She is currently using a dream wear medium-size full face mask. I think the residual obstructive respiratory events is related to the ongoing leaks that she is encountering. No recent weight gain. In fact, the patient has gained only 2 pounds over the past 2-1/2 years. She is going to bed around 11 p.m., wakes up 6:00 am in the morning. No naps during the day. She feels refreshed. No other new onset medical problems or comorbidities. REVIEW OF SYSTEMS: Fourteen-point review of system was done and positive findings are mentioned in history of present illness. PHYSICAL EXAMINATION: BP is 138/85, pulse 98, respirations 16, temperature is 96.7, saturation 97% on room air. Height is 5 feet 6 inches, weight is 181 and [place] score is 2. BMI is 29.2. GENERAL: Calm,comfortable. HEAD atraumatic, normocephalic. NECK: Supple. No JVD. No goiter or neck masses. LUNGS: Diminished otherwise clear. HEART: Heart sounds are regular rate and rhythm. Normal S1, S2. No murmurs. ABDOMEN: Soft, nontender. No organomegaly. EXTREMITIES: No edema. No cyanosis or clubbing. IMPRESSION: 1. Obstructive sleep apnea, AHI of 32, currently on APAP, minimum pressure of 4, maximum pressure of 12. She does have some residual obstructive events, probably related to leaks around the mask. 2. Hypersomnia, improved. 3. Snoring, improved. 4. Obesity, weight stable. BMI is 29. PLAN: 1. Encourage weight loss. 2. Offer the patient a Dream Wear fullface mask small size with a small frame which will improve the leaks and improve the apnea-hypopnea index while on treatment. 3. Implement good sleep hygiene measures. 4. Refill supplies. 5. See me back in a year's time in followup. MMODL / IJN: [id number] /
== END ==
LOC: SLEEP 14:28
PROVIDERS: ATTEND Internal Medicine Critical Care Medicine
DX: G47.33 Obstructive sleep apnea (adult) (pediatric) (principal); E66.9 Obesity, unspecified; Z68.29 Body mass index [BMI] 29.0-29.9, adult; Z99.89 Dependence on other enabling machines and devices; Z88.0 Allergy status to penicillin

== ENCOUNTER 2021-03-23 17:09 | Emergency (ER) | payer BC ==
--- NOTE | 2021-03-23 18:03 | ED ---
Head Injury HPI - General Stated complaint: fall, head injury Time Seen by Provider: 03/23/21 17:45 Source: patient, RN notes reviewed Mode of arrival: ambulatory Limitations: no limitations - History of Present Illness Initial comments: This a 60-year-old female presents emergency Department chief complaint of a head injury. Patient states yesterday she was outside and some outdoor decorating when she tripped over a stump striking her head into a mailbox. Patient states she didn't lose consciousness but states that she's had a headache while [place]. Patient states that she is on Aggrenox, baby aspirin. No blurred vision there is mild swelling around her right eye, mild bruising. She did ice it prolonged period time which seemed to help. She states she just felt slightly off and was concerned. - Related Data Home Medications Medication Instructions Recorded Confirmed Acarbose [Precose] 12.5 mg PO TID 12/05/18 12/05/18 Aspirin EC [Ecotrin Low Dose] 81 mg PO DAILY 12/05/18 12/05/18 Calcium Carb/Vitamin D3/Vit K1 1 tab PO BID 12/05/18 12/05/18 [Citracal Soft Chew] Cetirizine HCl [Zyrtec] 10 mg PO DAILY 12/05/18 12/05/18 Dipyridamole-Aspirin 200-25 mg 1 tab PO BID 12/05/18 12/05/18 [Aggrenox] Levothyroxine Sodium [Synthroid] 125 mcg PO SUMOTUWETHFR 12/05/18 12/05/18 Levothyroxine Sodium [Synthroid] 150 mcg PO SA 12/05/18 12/05/18 Potassium Chloride ER [K-Dur 20] 20 meq PO BID 12/05/18 12/05/18 amLODIPine [Norvasc] 10 mg PO DAILY 12/05/18 12/05/18 calcitrioL [Rocaltrol] 0.25 mcg PO BID 12/05/18 12/05/18 hydroCHLOROthiazide [Hydrodiuril] 37.5 mg PO DAILY 12/05/18 12/05/18 lamoTRIgine [LaMICtal] 150 mg PO BID 12/05/18 12/05/18 Allergies/Adverse reactions: Allergies Allergy/AdvReac Type Severity Reaction Status Date / Time Penicillins Allergy Rash/Hives Verified 03/23/21 19:19 Review of Systems ROS Statement: Those systems with pertinent positive or pertinent negative responses have been documented in the HPI. ROS Other: All systems not noted in ROS Statement are negative. Past Medical History Past Medical History: CVA/TIA, Thyroid Disorder History of Any Multi-Drug Resistant Organisms: None Reported Past Surgical History: Orthopedic Surgery Additional Past Surgical History / Comment(s): thyroidecomy Past Psychological History: No Psychological Hx Reported Past Alcohol Use History: None Reported Past Drug Use History: None Reported General Exam Limitations: no limitations General appearance: alert, in no apparent distress Head exam: Present: atraumatic, normocephalic, normal inspection Eye exam: Present: normal appearance, PERRL, EOMI, periorbital swelling, periorbital tenderness (Right superior). Absent: scleral icterus, conjunctival injection ENT exam: Present: normal exam, normal oropharynx, mucous membranes moist Neck exam: Present: normal inspection. Absent: tenderness, meningismus, lymphadenopathy Respiratory exam: Present: normal lung sounds bilaterally. Absent: respiratory distress, wheezes, rales, rhonchi, stridor Cardiovascular Exam: Present: regular rate, normal rhythm, normal heart sounds. Absent: systolic murmur, diastolic murmur, rubs, gallop, clicks Neurological exam: Present: alert, oriented X3, CN II-XII intact, reflexes normal. Absent: motor sensory deficit Skin exam: Present: warm, dry, intact, normal color. Absent: rash Course Vital Signs 03/23/21 17:59 Temperature 99.1 F Pulse Rate 96 Respiratory 20 Rate Blood Pressure 167/96 O2 Sat by Pulse 98 Oximetry Medical Decision Making - Medical Decision Making 60-year-old female presented for head injury CT is unremarkable patient discharged in stable condition return parameters were discussed. Disposition Clinical Impression: Hematoma of scalp, Contusion of head Disposition: HOME SELF-CARE Condition: Stable Instructions (If sedation given, give patient instructions): Head Injury (ED) Additional Instructions: Please return to the Emergency Department if symptoms worsen or any other concerns. Is patient prescribed a controlled substance at d/c from ED?: No Referrals: Palmer Navas MD [Primary Care Provider] - 1-2 days Time of Disposition: 19:21
--- NOTE | 2021-03-23 19:07 | CT ---
EXAMINATION TYPE: CT brain wo con DATE OF EXAM: 03/23/2021 COMPARISON: 10/19/2012 HISTORY: Fall yesterday with head injury. CT DLP: 1099.4 mGycm Automated exposure control for dose reduction was used. There is mild cerebral atrophy. There is no mass effect nor midline shift. There is no sign of intrac ranial hemorrhage. Calvarium is intact. IMPRESSION: Mild atrophy. No acute intracranial abnormality. No change.
[2021-03-23 19:37] VITALS: BP 180/87; PULSE 86; RESP 16; TEMP 97.3
== END 2021-03-23 19:52 | disposition home or self-care (01) ==
LOC: EC 17:09
DX: S00.83XA Contusion of other part of head, initial encounter (principal); S00.03XA Contusion of scalp, initial encounter; Z79.82 Long term (current) use of aspirin; Z79.890 Hormone replacement therapy; Z79.899 Other long term (current) drug therapy; Z88.0 Allergy status to penicillin; W01.198A Fall on same level from slipping, tripping and stumbling with subsequent striking against other object, initial encounter
CPT/HCPCS: 70450; 99284

== ENCOUNTER → 2021-05-15 | Outpatient (CLI) | payer BC ==
--- NOTE | 2021-05-15 16:31 | CT ---
EXAMINATION TYPE: CT abdomen pelvis w con DATE OF EXAM: 05/15/2021 COMPARISON: None HISTORY: 60-year-old female R10.32, Left lower quadrant pain. TECHNIQUE: Contiguous axial scanning of the abdomen and pelvis following administration of 100 ml Iso andi 300 IV contrast. Delayed images through the kidneys and coronal/sagittal reconstructions perform ed. CT DLP: 872.7 mGycm Automated exposure control for dose reduction was used. FINDINGS: Heart normal size without pericardial effusion. Small hiatal hernia. 9 mm lower left paraesophageal lymph node. Strandy atelectasis in the lower lung s. No focal liver lesion or biliary ductal dilatation system is patent. Gallbladder, adrenal glands, kidneys, spleen, and pancreas within normal limits. Numerous retroperitoneal lymph nodes. These are nonenlarged and borderline and mildly enlarged measur ing up to 1.1 cm. Right common iliac chain lymph node enlarged at 1.5 cm. Prominent upper left inguinal lymph nodes measuring up to 1.7 cm, coronal image 29. A few enlarged lymph nodes along the right femoral chains in the upper thighs measuring up to 1.8 cm, axial image 80. No dilated small bowel, free fluid, or free air. Oral contrast extends to the cecum. Moderate stool in the right side of the colon. No pericolonic inf lammatory change. Bladder distended. Uterus is anteverted. Both ovaries are visualized. No abnormal fluid collection in the pelvis. Bones: Degenerative hypertrophic facet arthropathy mid to lower lumbar spine. Grade 1, nearly grade 2 anterolisthesis L3-L4 and grade 1 anterolisthesis L4-L5. Grade 1 retrolisthesis T12-L1. Moderate deg enerative disc disease L4-L5. IMPRESSION: BORDERLINE TO MILDLY ENLARGED INGUINAL AND UPPER FEMORAL CHAIN LYMPH NODES MEASURING UP TO 1.8 CM. SH ORT AXIS. THERE ARE ALSO NUMEROUS NONENLARGED AND BORDERLINE TO MILDLY ENLARGED RETROPERITONEAL NODES MEASURING UP TO 1.1 CM. RIGHT COMMON ILIAC CHAIN NODE ENLARGED AT 1.5 CM.. WHILE THESE MAY BE REACTI VE/POST INFLAMMATORY, CLOSE FOLLOW-UP OR SAMPLING SHOULD BE CONSIDERED TO EXCLUDE EARLY LYMPHOMA/META STATIC DISEASE. NO ACUTE INFLAMMATORY PROCESS IDENTIFIED.
== END | disposition home or self-care (01) ==
LOC: RADCTMAIN 11:33
PROVIDERS: ATTEND Internal Medicine
DX: R59.0 Localized enlarged lymph nodes (principal)
CPT/HCPCS: 74177; Q9967 ×2

== ENCOUNTER → 2021-08-17 | Outpatient (CLI) | payer BC ==
--- NOTE | 2021-08-18 10:35 | MM ---
Reason for exam: screening (asymptomatic). Last mammogram was performed 3 years and 2 months ago. History: Patient is postmenopausal and is nulliparous. Took hormonal contraceptives for 15 years beginning at age 20. Physical Findings: A clinical breast exam by your physician is recommended on an annual basis and results should be correlated with mammographic findings. MG 3D Screening Mammo W/Cad Bilateral CC and MLO view(s) were taken. Prior study comparison: June 22, 2018, bilateral MG screening mammo w CAD. December 31, 2009, bilateral digital screening mammogram. The breast tissue is heterogeneously dense. This may lower the sensitivity of mammography. There are benign appearing round calcifications bilaterally. There is no discrete abnormality. ASSESSMENT: Benign, BI-RAD 2 RECOMMENDATION: Routine screening mammogram of both breasts in 1 year.
== END | disposition home or self-care (01) ==
LOC: RADMAMWWP 12:59
PROVIDERS: ATTEND Internal Medicine
DX: Z12.31 Encounter for screening mammogram for malignant neoplasm of breast (principal); Z78.0 Asymptomatic menopausal state
CPT/HCPCS: 77063; 77067

== ENCOUNTER 2024-01-11 08:37 | Day surgery (SDC) | payer BC ==
[2024-01-09 14:22] VITALS: BMI 27.2
[2024-01-11 09:24] VITALS: TEMP 97
[2024-01-11] MEDS: LACTATED RINGERS 1,000 ML BAG IV STA (09:26)
[2024-01-11] MEDS: IV FLUID CONTINUATION 1,000 ML IV ONE (09:26)
[2024-01-11] MEDS ORDERED: PROPOFOL 10 MG/ML 20 ML VIAL IV ONE (10:04)
[2024-01-11] MEDS ORDERED: LIDOCAINE 2% (PF) 20 MG/ML 5 ML VIAL ONE (10:04)
--- NOTE | 2024-01-11 10:12 | P.PCN ---
Date of Procedure: 01/11/24 Procedure(s) Performed: BRIEF HISTORY: Patient is a 63-year-old, pleasant, white female skilled Endoscopy as a part of rising lungs and history of GERD. She is was recently started omeprazole 20 mg daily and symptoms are gradually improving.. PROCEDURE PERFORMED: Esophagogastroduodenoscopy with biopsy. PREOPERATIVE DIAGNOSIS: History of GERD. IV sedation per anesthesia. PROCEDURE: After informed consent was obtained, the patient was brought into the endoscopy unit. IV sedation was administered by Anesthesia under continuous monitoring. Initially the Olympus GIF-140 video endoscope was inserted into the mouth. Esophagus intubated without any difficulty. It was gradually advanced into the stomach and duodenum and carefully examined. The bulb and the second part of the duodenum appeared normal. The scope at this time was withdrawn to the stomach, adequately insufflated with air, and upon careful examination, mucosa of the antrum, had linear areas of erythema consistent with gastritis and biopsies were done from this area. Mucosa body, cardia and the fundus appeared normal. The scope was then withdrawn into the esophagus. Small hiatal hernia noted. The GE junction was located at 39 cm from the incisors. It appeared irregular and there was a short segment of Kelly's esophagus extending 3 mm proximal to the GE junction which was biopsied. The rest of the esophagus appeared normal. There were no erosions or ulcerations seen and the patient tolerated the procedure well. IMPRESSION: 1. Mild antral gastritis. 2. Small hiatal hernia and short segment Kelly's esophagus. RECOMMENDATIONS: The findings of this examination were discussed with the patient as well as her family. She was advised to follow-up with the biopsy results. If the biopsy confirms the presence of Kelly's esophagus she can have repeat upper endoscopy in 3 years. In the meantime she will continue with omeprazole 20 mg daily and follow antireflux measures..
[2024-01-11 10:20] VITALS: PULSE 75
[2024-01-11] MEDS ORDERED: LACTATED RINGERS 1,000 ML IV SCH (10:21)
[2024-01-11 10:53] VITALS: BP 140/88; RESP 20
== END 2024-01-11 11:12 ==
LOC: ORWHC2ENDO 08:37
PROVIDERS: ATTEND Internal Medicine Gastroenterology
DX: K21.9 Gastro-esophageal reflux disease without esophagitis
CPT/HCPCS: 43239; 88305

== ENCOUNTER 2024-04-04 00:08 | Emergency (ER) | payer BC ==
[2024-04-04 00:39] VITALS: TEMP 99.2
[2024-04-04 02:03] VITALS: RESP 18
[2024-04-04] MEDS: SODIUM CHLORIDE 0.9% 1,000 ML IV STA (02:09)
--- NOTE | 2024-04-04 02:30 | ED ---
General Adult HPI - General Chief complaint: Overdose Stated complaint: Overdose Time Seen by Provider: 04/04/24 01:28 Source: patient, RN notes reviewed, old records reviewed Mode of arrival: ambulatory Limitations: no limitations - History of Present Illness Initial comments: Patient is a 63-year-old female who presents emergency department for possible low risk overdose. She called poison control prior to presentation who recommended she present to the ER for evaluation. Patient states that at approximately 2200 last night, she took 1 extra tablet of either Zyrtec, aspirin, Norvasc. States she normally takes 3 total tablets, 1 of each of these but she took for total, and believes she may have accidentally taken 1 extra of 1 of those. Obviously she felt taking 1 extra dose of her Norvasc was the most concerning. She called poison control who recommended she come to the emergency department for further evaluation. She denies any complaints at this time other than anxiety. Presents for further evaluation. Has a history of CVA, GERD, hypertension, seizure disorder. Took all of her other medications last night. Denies nausea, lightheadedness, weakness. - Related Data Home Medications Medication Instructions Recorded Confirmed Aspirin EC [Ecotrin Low Dose] 81 mg PO DAILY 12/05/18 01/09/24 Calcium Carb/Vitamin D3/Vit K1 1 tab PO BID 12/05/18 01/09/24 [Citracal Soft Chew] Cetirizine HCl [Zyrtec] 10 mg PO DAILY 12/05/18 01/11/24 Dipyridamole-Aspirin 200-25 mg 1 tab PO BID 12/05/18 01/09/24 [Aggrenox] Levothyroxine Sodium [Synthroid] 137 mcg PO SUTUWEFRSA 12/05/18 01/11/24 Levothyroxine Sodium [Synthroid] 150 mcg PO MOTH 12/05/18 01/11/24 amLODIPine [Norvasc] 10 mg PO HS 12/05/18 01/11/24 calcitrioL [Rocaltrol] 0.25 mcg PO BID 12/05/18 01/11/24 lamoTRIgine [LaMICtal] 150 mg PO BID 12/05/18 01/11/24 Cholecalciferol [Vitamin D3 (25 25 mcg PO DAILY 01/09/24 01/09/24 Mcg = 1000 Iu)] Omeprazole [PriLOSEC] 20 mg PO DAILY 01/09/24 01/11/24 Escitalopram [Lexapro] 5 mg PO DAILY 01/11/24 01/11/24 Allergies Allergy/AdvReac Type Severity Reaction Status Date / Time No Known Allergies Allergy Verified 04/04/24 00:36 Review of Systems ROS Statement: Those systems with pertinent positive or pertinent negative responses have been documented in the HPI. Review of Systems: CONST: Denies fever EYES: Denies blurry vision ENT: Denies nasal congestion C/V: Denies Chest pain RESP: Denies shortness of breath GI: Denies abdominal pain : Denies dysuria SKIN: Denies rash. MSK: Denies joint pain. NEURO: Denies headache ROS Other: All systems not noted in ROS Statement are negative. Past Medical History Past Medical History: CVA/TIA, GERD/Reflux, Hypertension, Seizure Disorder, Sleep Apnea/CPAP/BIPAP, Thyroid Disorder Additional Past Medical History / Comment(s): last seizure in 2009 after having stroke in 2005, cpap History of Any Multi-Drug Resistant Organisms: None Reported Past Surgical History: Orthopedic Surgery Additional Past Surgical History / Comment(s): thyroidecomy, right knee torn meniscus, arthroscopic on left knee, colonoscopy Past Anesthesia/Blood Transfusion Reactions: No Reported Reaction Additional Past Anesthesia/Blood Transfusion Reaction / Comment(s): no blood transfusion Past Psychological History: No Psychological Hx Reported Smoking Status: Never smoker Past Alcohol Use History: None Reported Past Drug Use History: None Reported - Past Family History Sister(s) Family Medical History: Cancer Additional Family Medical History / Comment(s): colon General Exam - General Exam Comments Initial Comments: General: Appears in no acute distress. HEAD: Normal with no signs of head trauma. EYES: EOMI ENT: Hearing grossly intact, normal oropharynx. RESPIRATORY: Clear breath sounds bilaterally. No wheezes, rales, or rhonchi. C/V: Regular rate and rhythm. S1 and S2 auscultated, no edema, peripheral pulses 2+ and intact throughout ABD: Abd is soft, nontender, nondistended EXT: No obvious deformity. SKIN: No rashes or lesions observed on exposed skin. NEURO: Alert and oriented x 4. Limitations: no limitations Course Vital Signs 04/04/24 04/04/24 04/04/24 00:36 01:35 01:45 Temperature 99.2 F Pulse Rate 128 H 113 H 93 Respiratory 22 18 18 Rate Blood Pressure 158/80 186/103 159/77 O2 Sat by Pulse 97 100 96 Oximetry 04/04/24 04/04/24 04/04/24 02:00 02:15 02:45 Temperature Pulse Rate 81 76 84 Respiratory 18 18 18 Rate Blood Pressure 135/94 135/89 142/86 O2 Sat by Pulse 96 95 95 Oximetry Medical Decision Making - Medical Decision Making Was pt. sent in by a medical professional or institution (, YUSRA, SENIOR CLINICAL PROJECT MANAGER, urgent care, hospital, or [facility]...) When possible be specific @ -No Did you speak to anyone other than the patient for history (EMS, parent, family, police, friend...)? What history was obtained from this source @ -No Did you review nursing and triage notes (agree or disagree)? Why? @ -I reviewed and agree with nursing and triage notes Were old charts reviewed (outside hosp., previous admission, EMS record, old EKG, old radiological studies, urgent care reports/EKG's, [facility] records)? Report findings @ -No old charts were reviewed Differential Diagnosis (chest pain, altered mental status, abdominal pain women, abdominal pain men, vaginal bleeding, weakness, fever, dyspnea, syncope, headache, dizziness, GI bleed, back pain, seizure, CVA, palpatations, mental health, musculoskeletal)? @ -Accidental Norvasc overdose, hypotension, electrolyte abnormality. This list is not all inclusive. EKG interpreted by me (3pts min.). @ -As above X-rays interpreted by me (1pt min.). @ -None done CT interpreted by me (1pt min.). @ -None done U/S interpreted by me (1pt. min.). @ -None done What testing was considered but not performed or refused? (CT, X-rays, U/S, labs)? Why? @ -None What meds were considered but not given or refused? Why? @ -None Did you discuss the management of the patient with other professionals (professionals i.e. YUSRA Buchanan, SENIOR CLINICAL PROJECT MANAGER, lab, RT, psych nurse, social studies teacher, title lawyer, teacher, intelligence officer, machine adjuster leader case trim)? Give summary @ -Poison control contacted by nursing staff. They recommended observation until at least 2 AM. Patient is currently not hypotensive based at time of ingestion, if patient remains not hypotensive then patient is cleared for disc harge home. Was smoking cessation discussed for >3mins.? @ -No Was critical care preformed (if so, how long)? @ -No Were there social determinants of health that impacted care today? How? (Homelessness, low income, unemployed, alcoholism, drug addiction, transportation, low edu. Level, literacy, decrease access to med. care, care home, rehab)? @ -No Was there de-escalation of care discussed even if they declined (Discuss DNR or withdrawal of care, Hospice)? DNR status @ -No What co-morbidities impacted this encounter? (DM, HTN, Smoking, COPD, CAD, Cancer, CVA, ARF, Chemo, Hep., AIDS, mental health diagnosis, sleep apnea, morbid obesity)? @ -None Was patient admitted / discharged? Hospital course, mention meds given and route, prescriptions, significant lab abnormalities, going to OR and other pertinent info. @ -Based on the patient's presentation and physical exam patient presents emerg ency department for accidental overdose. She thinks she may have taken an extra dose of her Norvasc it also could have been 1 extra dose of Zyrtec or aspirin. She contacted poison control who recommended she present to the ER for evaluation. She currently has no symptoms other than anxiety. We will obtain overdose workup and contact poison control for further guidance. Likely requires some period of observation and and then discharged home due to the low risk accidental ingestion. Vitals currently within acceptable limits. She currently appears very anxious but otherwise within acceptable limits. EKG shows no signs of acute ischemia.Laboratory studies returned all within acceptable limits. On reevaluation, patient's blood pressure remains within acceptable limits at 142/86. No evidence of hypotension throughout her stay here. Was observed for multiple hours. I believe it is safer to be discharged home. She was in agreement this plan. Based on poison control recommendations, patient can be discharged home at this time. Strict return precautions discussed. I instructed the patient to follow up with their PCP in the next 1-3 days. I explained that the patient should return to the emergency department if they experience any worsening symptoms. Strict return precautions were discussed with the patient. The patient expressed understanding of these instructions. I ans wered all questions that the patient had. The patient was discharged home in good condition with their prescriptions and follow up information. Undiagnosed new problem with uncertain prognosis? @ -No Drug Therapy requiring intensive monitoring for toxicity (Heparin, Nitro, Insulin, Cardizem)? @ -No Were any procedures done? @ -No Diagnosis/symptom? @ -Accidental drug overdose Acute, or Chronic, or Acute on Chronic? @ -Acute Uncomplicated (without systemic symptoms) or Complicated (systemic symptoms)? @ -Uncomplicated Side effects of treatment? @ -None Exacerbation, Progression, or Severe Exacerbation] @ -No Poses a threat to life or bodily function? @ -Unlikely - Lab Data Result diagrams: 04/04/24 02:05 04/04/24 02:05 Lab Results 04/04/24 04/04/24 Range/Units 02:05 02:05 WBC 5.1 (3.8-10.6) k/uL RBC 4.62 (3.80-5.40) m/uL Hgb 13.5 (11.4-16.0) gm/dL Hct 41.9 (34.0-46.0) % MCV 90.7 (80.0-100.0) fL MCH 29.1 (25.0-35.0) pg MCHC 32.1 (31.0-37.0) g/dL RDW 13.3 (11.5-15.5) % Plt Count 346 (150-450) k/uL MPV 7.6 Neutrophils % 85 % Lymphocytes % 10 % Monocytes % 4 % Eosinophils % 0 % Basophils % 0 % Neutrophils # 4.3 (1.3-7.7) k/uL Lymphocytes # 0.5 L (1.0-4.8) k/uL Monocytes # 0.2 (0-1.0) k/uL Eosinophils # 0.0 (0-0.7) k/uL Basophils # 0.0 (0-0.2) k/uL Sodium 140 (137-145) mmol/L Potassium 3.5 (3.5-5.1) mmol/L Chloride 107 (98-107) mmol/L Carbon Dioxide 24 (22-30) mmol/L Anion Gap 9 mmol/L BUN 30 H (7-17) mg/dL Creatinine 1.11 H (0.52-1.04) mg/dL Est GFR (CKD-EPI)AfAm 61 (>60 ml/min/1.73 sqM) Est GFR (CKD-EPI)NonAf 53 (>60 ml/min/1.73 sqM) Glucose 158 H (74-99) mg/dL Calcium 8.9 (8.4-10.2) mg/dL Total Bilirubin 0.5 (0.2-1.3) mg/dL AST 21 (14-36) U/L ALT 22 (4-34) U/L Alkaline Phosphatase 80 (38-126) U/L Total Protein 7.7 (6.3-8.2) g/dL Albumin 4.7 (3.5-5.0) g/dL Salicylates <1.0 mg/dL Acetaminophen <10.0 ug/mL Serum Alcohol <10 mg/dL - EKG Data -: EKG Interpreted by Me EKG Comments: 12-lead Electrocardiogram Interpretation Note EKG was reviewed and interpreted by myself. 12-lead ECG performed at 0053is interpreted by me as revealing sinus tachycardia at a rate of 115 beats per minute. [place] is normal. [place] interval is 148 ms, QRS durations 89 ms, QTc is 401 ms.. There were no ST or T wave abnormalities to suggest myocardial ischemia or injury. R wave progression across the precordium was delayed. By my interpretation this EKG is non-diagnostic for acute ischemia. Disposition Clinical Impression: Accidental drug overdose Disposition: HOME SELF-CARE Condition: Good Instructions (If sedation given, give patient instructions): Adult Overdose (ED) Additional Instructions: We had discussions with poison control and after normal labs as well as no evidence of hypotension after period of observation, you are cleared for discharge home. Monitor your medications carefully. Please return if any concerns. Follow-up with your PCP in the next 1 to 3 days. Return to the emergency department with any worsening symptoms. Is patient prescribed a controlled substance at d/c from ED?: No Referrals: Steven Roman MD [Primary Care Provider] - 1-2 days Time of Disposition: 04:31
[2024-04-04 02:59] LABS: ALT 22 U/L (4-34); AST 21 U/L (14-36); Acetaminophen <10.0 ug/mL; African American GFR (CKD) 61 (>60 ml/min/1.73 sqM); Albumin 4.7 g/dL (3.5-5.0); Alcohol <10 mg/dL; Alkaline Phosphatase 80 U/L (38-126); Anion Gap 9 mmol/L; Blood Urea Nitrogen 30 mg/dL (7-17); Calcium 8.9 mg/dL (8.4-10.2); Carbon Dioxide 24 mmol/L (22-30); Chloride 107 mmol/L (98-107); Glucose 158 mg/dL (74-99); Non-African American GFR(CKD) 53 (>60 ml/min/1.73 sqM); Potassium 3.5 mmol/L (3.5-5.1); Salicylate <1.0 mg/dL; Sodium 140 mmol/L (137-145); Total Bilirubin 0.5 mg/dL (0.2-1.3); Total Protein 7.7 g/dL (6.3-8.2)
[2024-04-04 03:45] LABS: Basophils % (A) 0 %; Eosinophils % (A) 0 %; HCT 41.9 % (34.0-46.0); HGB 13.5 gm/dL (11.4-16.0); Lymphocytes # (A) 0.5 k/uL (1.0-4.8); Lymphocytes % (A) 10 %; MCH 29.1 pg (25.0-35.0); MCHC 32.1 g/dL (31.0-37.0); MCV 90.7 fL (80.0-100.0); Mean Platelet Volume 7.6; Monocytes # (A) 0.2 k/uL (0-1.0); Monocytes % (A) 4 %; Neutrophils # (A) 4.3 k/uL (1.3-7.7); Neutrophils % (A) 85 %; Platelet Count 346 k/uL (150-450); RBC 4.62 m/uL (3.80-5.40); RDW 13.3 % (11.5-15.5); WBC 5.1 k/uL (3.8-10.6)
[2024-04-04 05:13] VITALS: BP 140/76; PULSE 90
== END 2024-04-04 05:13 | disposition home or self-care (01) ==
LOC: EC 00:08
DX: T46.1X1A Poisoning by calcium-channel blockers, accidental (unintentional), initial encounter (principal); R00.0 Tachycardia, unspecified
CPT/HCPCS: 36415; 80053; 80143; 80179; 80320; 85025; 93005; 96360; 99284

== ENCOUNTER 2024-05-13 12:16 | Inpatient (IN) | payer BC ==
--- NOTE | 2024-05-13 12:43 | ED ---
Skin/Abscess/FB HPI - General Chief complaint: Skin/Abscess/Foreign Body Stated complaint: mouth infection posb covid Time Seen by Provider: 05/13/24 12:39 Source: patient, RN notes reviewed Mode of arrival: ambulatory Limitations: no limitations - History of Present Illness Initial comments: 63-year-old female presented to the ER for evaluation of rash. Patient states on , 05-03-2024, she believes she may have scratched her lip on her boyfriend's pineda causing a small dry area. Patient states she washed her face with a gentle cleanser and moisturized that night and went to bed with her CPAP machine as normal. Over the weekend she noticed an increase of size of scabs to lower lip and chin. Patient was seen at urgent care on 05-07-2024. Patient was diagnosed with impetigo and started on Bactrim. Patient has taken Bactrim for 5 days. She reports no improvement with this and is now reporting a sore discomfort to the rash and roof of her mouth and throat. She does state it is mildly painful to swallow. She reports new lesions have erupted overnight. Patient also admits to recent fevers and chills but contributes this to possibly a viral illness as she feels like she has "COVID". She denies any chest pain, s hortness of breath, abdominal pain, constipation/diarrhea or other complaints. - Related Data Home Medications Medication Instructions Recorded Confirmed Aspirin EC [Ecotrin Low Dose] 81 mg PO HS 12/05/18 05/13/24 Calcium Carb/Vitamin D3/Vit K1 1 tab PO BID 12/05/18 05/13/24 [Citracal Soft Chew] Cetirizine HCl [Zyrtec] 10 mg PO HS 12/05/18 05/13/24 Dipyridamole-Aspirin 200-25 mg 1 cap PO BID 12/05/18 05/13/24 [Aggrenox] Levothyroxine Sodium [Synthroid] 137 mcg PO SUTUWEFRSA 12/05/18 05/13/24 Levothyroxine Sodium [Synthroid] 150 mcg PO MOTH 12/05/18 05/13/24 amLODIPine [Norvasc] 10 mg PO HS 12/05/18 05/13/24 calcitrioL [Rocaltrol] 0.25 mcg PO BID 12/05/18 05/13/24 lamoTRIgine [LaMICtal] 150 mg PO BID 12/05/18 05/13/24 Omeprazole [PriLOSEC] 20 mg PO DAILY 01/09/24 05/13/24 Escitalopram [Lexapro] 5 mg PO DAILY 01/11/24 05/13/24 Sulfamethox-Tmp 800-160Mg [Bactrim 1 tab PO BID 05/13/24 05/13/24 DS 800-160 mg] Allergies Allergy/AdvReac Type Severity Reaction Status Date / Time No Known Allergies Allergy Verified 05/13/24 13:21 Review of Systems ROS Statement: Those systems with pertinent positive or pertinent negative responses have been documented in the HPI. ROS Other: All systems not noted in ROS Statement are negative. Past Medical History Past Medical History: CVA/TIA, GERD/Reflux, Hypertension, Seizure Disorder, Sleep Apnea/CPAP/BIPAP, Thyroid Disorder Additional Past Medical History / Comment(s): last seizure in 2009 after having stroke in 2005, cpap History of Any Multi-Drug Resistant Organisms: None Reported Past Surgical History: Orthopedic Surgery Additional Past Surgical History / Comment(s): thyroidecomy, right knee torn meniscus, arthroscopic on left knee, colonoscopy Past Anesthesia/Blood Transfusion Reactions: No Reported Reaction Additional Past Anesthesia/Blood Transfusion Reaction / Comment(s): no blood transfusion Past Psychological History: No Psychological Hx Reported Smoking Status: Never smoker Past Alcohol Use History: None Reported Past Drug Use History: None Reported - Past Family History Sister(s) Family Medical History: Cancer Additional Family Medical History / Comment(s): colon General Exam Limitations: no limitations General appearance: alert, in no apparent distress ENT exam: Present: normal exam, normal oropharynx, mucous membranes moist Respiratory exam: Present: normal lung sounds bilaterally. Absent: respiratory distress, wheezes, rales, rhonchi, stridor Cardiovascular Exam: Present: normal rhythm, tachycardia, normal heart sounds Neurological exam: Present: alert, oriented X3, CN II-XII intact Skin exam: Present: warm, dry, intact, rash (Honey crusted rash to lower lip and chin with underlying erythema. There are satellite lesions to neck.) Course Vital Signs 05/13/24 05/13/24 12:18 14:10 Temperature 97.8 F 97.9 F Pulse Rate 128 H 104 H Respiratory 18 18 Rate Blood Pressure 96/61 127/78 O2 Sat by Pulse 98 95 Oximetry - Reevaluation(s) Reevaluation #1: 05/13/24 14:55 Case discussed with [facility] physician, Dr. Street, for admission. Medical Decision Making - Medical Decision Making Was pt. sent in by a medical professional or institution (, YUSRA, BARREL LATHE OPERATOR, urgent care, hospital, or skilled nursing...) When possible be specific @ -No Did you speak to anyone other than the patient for history (EMS, parent, family, police, friend...)? What history was obtained from this source @ -No Did you review nursing and triage notes (agree or disagree)? Why? @ -I reviewed and agree with nursing and triage notes Were old charts reviewed (outside hosp., previous admission, EMS record, old EKG, old radiological studies, urgent care reports/EKG's, skilled nursing records)? Report findings @ -No old charts were reviewed Differential Diagnosis (chest pain, altered mental status, abdominal pain women, abdominal pain men, vaginal bleeding, weakness, fever, dyspnea, syncope, headache, dizziness, GI bleed, back pain, seizure, CVA, palpatations, mental health, musculoskeletal)? @ -Cellulitis, impetigo, MRSA, diabetic ulcer, Сергей angina... This list is not meant to be all-inclusive EKG interpreted by me (3pts min.). @ -As above X-rays interpreted by me (1pt min.). @ -None done CT interpreted by me (1pt min.). @ -None done U/S interpreted by me (1pt. min.). @ -None done What testing was considered but not performed or refused? (CT, X-rays, U/S, labs)? Why? @ -None What meds were considered but not given or refused? Why? @ -None Did you discuss the management of the patient with other professionals (professionals i.e. YUSRA Buchanan, BARREL LATHE OPERATOR, lab, RT, psych nurse, social service coordinator, manager customer service, teacher, policy officer, geriatric case manager)? Give summary @ -Yes, case discussed with [facility] physician, , for admission. Was smoking cessation discussed for >3mins.? @ -No Was critical care preformed (if so, how long)? @ -No Were there social determinants of health that impacted care today? How? (Homelessness, low income, unemployed, alcoholism, drug addiction, transportation, low edu. Level, literacy, decrease access to med. care, group home, rehab)? @ -No Was there de-escalation of care discussed even if they declined (Discuss DNR or withdrawal of care, Hospice)? DNR status @ -No What co-morbidities impacted this encounter? (DM, HTN, Smoking, COPD, CAD, Cancer, CVA, ARF, Chemo, Hep., AIDS, mental health diagnosis, sleep apnea, morbid obesity)? @ -None Was patient admitted / discharged? Hospital course, mention meds given and route, prescriptions, significant lab abnormalities, going to OR and other p ertinent info. @ -Admitted. 63-year-old female presented to ER for evaluation of a rash. Upon rooming, history and physical exam completed. Patient is tachycardic at 128 with a blood pressure 96/61. Vitals otherwise stable. Tachycardia believed to be due to anxiety. Patient in no signs of acute distress nontoxic-appearing. Exam remarkable for a honey color crusted rash with underlying erythema to lower lip and entire chin. There are some satellite lesions to the neck. As patient has been on Bactrim for approximately 5 days laboratory studies will be obtained, patient is agreeable. WBC 7.1, lactic 2.0. PABLITO with a BUN of 26, creatinine 1.6 with GFR 34, hypokalemia at 3.0. Viral swabs negative. Given extensive rash and failed outpatient treatment, admission was considered and discussed with [facility] physician, Dr. Street for IV antibiotics. Wound culture and blood cultures obtained. Patient will be started on vancomycin. Patient is agreeable for admission. Case discussed with the attending by Dr. Paz. Undiagnosed new problem with uncertain prognosis? @ -No Drug Therapy requiring intensive monitoring for toxicity (Heparin, Nitro, Insulin, Cardizem)? @ -No Were any procedures done? @ -No Diagnosis/symptom? @ -Impetigo/failed outpatient treatment Acute, or Chronic, or Acute on Chronic? @ -Acute Uncomplicated (without systemic symptoms) or Complicated (systemic symptoms)? @ -Complicated Side effects of treatment? @ -No Exacerbation, Progression, or Severe Exacerbation? @ -No Poses a threat to life or bodily function? How? (Chest pain, USA, ID, pneumonia, PE, COPD, DKA, ARF, appy, cholecystitis, CVA, Diverticulitis, Homicidal, Ita cidal, threat to staff... and all critical care pts) @ -Yes, infection can lead to sepsis and/or endorgan dysfunction. - Lab Data Result diagrams: 05/13/24 13:20 05/13/24 13:20 Lab Results 05/13/24 05/13/24 05/13/24 Range/Units 13:20 13:20 13:20 WBC 7.1 (3.8-10.6) k/uL RBC 4.28 (3.80-5.40) m/uL Hgb 12.9 (11.4-16.0) gm/dL Hct 38.0 (34.0-46.0) % MCV 88.8 (80.0-100.0) fL MCH 30.1 (25.0-35.0) pg MCHC 33.9 (31.0-37.0) g/dL RDW 12.9 (11.5-15.5) % Plt Count 366 (150-450) k/uL MPV 7.2 Neutrophils % 80 % Lymphocytes % 8 % Monocytes % 5 % Eosinophils % 4 % Basophils % 1 % Neutrophils # 5.6 (1.3-7.7) k/uL Lymphocytes # 0.6 L (1.0-4.8) k/uL Monocytes # 0.3 (0-1.0) k/uL Eosinophils # 0.3 (0-0.7) k/uL Basophils # 0.1 (0-0.2) k/uL Sodium 139 (137-145) mmol/L Potassium 3.0 L (3.5-5.1) mmol/L Chloride 103 (98-107) mmol/L Carbon Dioxide 20 L (22-30) mmol/L Anion Gap 16 mmol/L BUN 26 H (7-17) mg/dL Creatinine 1.60 H (0.52-1.04) mg/dL Est GFR (CKD-EPI)AfAm 39 (>60 ml/min/1.73 sqM) Est GFR (CKD-EPI)NonAf 34 (>60 ml/min/1.73 sqM) Glucose 102 H (74-99) mg/dL Plasma Lactic Acid Eros 2.0 (0.7-2.0) mmol/L Calcium 9.5 (8.4-10.2) mg/dL Total Bilirubin 0.4 (0.2-1.3) mg/dL AST 25 (14-36) U/L ALT 20 (4-34) U/L Alkaline Phosphatase 72 (38-126) U/L Total Protein 7.4 (6.3-8.2) g/dL Albumin 4.4 (3.5-5.0) g/dL Influenza Type A (PCR) (Not Detectd) Influenza Type B (PCR) (Not Detectd) RSV (PCR) (Not Detectd) SARS-CoV-2 (PCR) (Not Detectd) 05/13/24 Range/Units 13:20 WBC (3.8-10.6) k/uL RBC (3.80-5.40) m/uL Hgb (11.4-16.0) gm/dL Hct (34.0-46.0) % MCV (80.0-100.0) fL MCH (25.0-35.0) pg MCHC (31.0-37.0) g/dL RDW (11.5-15.5) % Plt Count (150-450) k/uL MPV Neutrophils % % Lymphocytes % % Monocytes % % Eosinophils % % Basophils % % Neutrophils # (1.3-7.7) k/uL Lymphocytes # (1.0-4.8) k/uL Monocytes # (0-1.0) k/uL Eosinophils # (0-0.7) k/uL Basophils # (0-0.2) k/uL Sodium (137-145) mmol/L Potassium (3.5-5.1) mmol/L Chloride (98-107) mmol/L Carbon Dioxide (22-30) mmol/L Anion Gap mmol/L BUN (7-17) mg/dL Creatinine (0.52-1.04) mg/dL Est GFR (CKD-EPI)AfAm (>60 ml/min/1.73 sqM) Est GFR (CKD-EPI)NonAf (>60 ml/min/1.73 sqM) Glucose (74-99) mg/dL Plasma Lactic Acid Eros (0.7-2.0) mmol/L Calcium (8.4-10.2) mg/dL Total Bilirubin (0.2-1.3) mg/dL AST (14-36) U/L ALT (4-34) U/L Alkaline Phosphatase (38-126) U/L Total Protein (6.3-8.2) g/dL Albumin (3.5-5.0) g/dL Influenza Type A (PCR) Not Detected (Not Detectd) Influenza Type B (PCR) Not Detected (Not Detectd) RSV (PCR) Not Detected (Not Detectd) SARS-CoV-2 (PCR) Not Detected (Not Detectd) - EKG Data -: EKG Interpreted by Me EKG Comments: EKG taken at 13: 34 showing a sinus tachycardia. No ST segment elevations or depressions. No T wave abnormalities. Ventricular rate 102, ID interval 182, QRS duration 110, QT/QTc 364/423. Disposition Clinical Impression: Impetigo, Failure of outpatient treatment Disposition: ADMITTED IP TO THIS HOSP Condition: Stable Referrals: Steven Roman MD [Primary Care Provider] - 1-2 days Time of Disposition: 14:56
[2024-05-13 13:42] LABS: Basophils # (A) 0.1 k/uL (0-0.2); Basophils % (A) 1 %; Eosinophils # (A) 0.3 k/uL (0-0.7); Eosinophils % (A) 4 %; HGB 12.9 gm/dL (11.4-16.0); Lymphocytes # (A) 0.6 k/uL (1.0-4.8); Lymphocytes % (A) 8 %; MCH 30.1 pg (25.0-35.0); MCHC 33.9 g/dL (31.0-37.0); MCV 88.8 fL (80.0-100.0); Mean Platelet Volume 7.2; Monocytes # (A) 0.3 k/uL (0-1.0); Monocytes % (A) 5 %; Neutrophils # (A) 5.6 k/uL (1.3-7.7); Neutrophils % (A) 80 %; Platelet Count 366 k/uL (150-450); RBC 4.28 m/uL (3.80-5.40); RDW 12.9 % (11.5-15.5); WBC 7.1 k/uL (3.8-10.6)
[2024-05-13 14:10] LABS: ALT 20 U/L (4-34); AST 25 U/L (14-36); African American GFR (CKD) 39 (>60 ml/min/1.73 sqM); Albumin 4.4 g/dL (3.5-5.0); Alkaline Phosphatase 72 U/L (38-126); Anion Gap 16 mmol/L; Blood Urea Nitrogen 26 mg/dL (7-17); Calcium 9.5 mg/dL (8.4-10.2); Carbon Dioxide 20 mmol/L (22-30); Chloride 103 mmol/L (98-107); Glucose 102 mg/dL (74-99); Non-African American GFR(CKD) 34 (>60 ml/min/1.73 sqM); Sodium 139 mmol/L (137-145); Total Bilirubin 0.4 mg/dL (0.2-1.3); Total Protein 7.4 g/dL (6.3-8.2)
[2024-05-13 14:18] LABS: Influenza A Not Detected (Not Detectd); Influenza B Not Detected (Not Detectd); RSV Not Detected (Not Detectd)
[2024-05-13] MEDS ORDERED: ACETAMINOPHEN TAB 325 MG TAB PO PRN (14:47)
[2024-05-13] MEDS ORDERED: VANCOMYCIN IV PER PHARMACY 1 EACH MISC MISCELLANE PRN (14:47)
[2024-05-13] MEDS ORDERED: NALOXONE 0.4 MG/ML 1 ML VIAL IV PRN (14:47)
[2024-05-13] MEDS: SODIUM CHLORIDE 0.9% 1,000 ML IV SCH (15:30)
[2024-05-13] MEDS: VANCOMYCIN 1,500 MG in SODIUM CHLORIDE 0.9% 500 ML 500 ML IVPB ONE (15:31)
[2024-05-13] MEDS: POTASSIUM CHLORIDE ER 20 MEQ TAB.ER PO STA (16:46)
[2024-05-13] MEDS: LEVOTHYROXINE 137 MCG TAB PO SCH (17:01)
[2024-05-13] MEDS ORDERED: HYDROcodone/APAP 5-325MG 1 EACH TAB PO PRN (17:11)
[2024-05-13] MEDS ORDERED: MORPHINE SULFATE 4 MG/ML SYRINGE IV PRN (17:11)
--- NOTE | 2024-05-13 17:11 | P.HPIM ---
History of Present Illness H&P Date: 05/13/24 History of Presenting Illness: Patient is a very pleasant 63-year-old female with a past medical history of CVA in 2005, seizure disorder following stroke with last seizure being in 2009, hypothyroidism status post thyroidectomy, hypertension, obstructive sleep apnea CPAP dependent nightly, and GERD. She presented to the emergency department for evaluation of facial wound. Patient reports that on she kissed her boyfriend and began to notice some irritation from his pineda on on her lower lip/chin and which worsened after sleeping with her CPAP overnight. She states on Tuesday she noticed that rash began blistering and scabbing and she went to her doctor's office/clinic on Tuesday for evaluation. Patient states she was diagnosed with impetigo and started on Bactrim and took as prescribed but reports the rash and scabbing continued to worsen and spread throughout her entire chin, lower lip, now into her upper lip and into her mouth. She states having intermittent fevers at home and overall just feeling fatigued almost similar to how she felt when she had COVID long-hauler syndrome. Patient denies having any headache, lightheadedness, dizziness, changes in vision or hearing, chest pain, palpitations, shortness of breath, cough or congestion, or experiencing any numbness/tingling/weakness in her extremities. She denies havi ng this rash in any other location and denies ever experiencing a similar rash in the past. Upon arrival to our facility, patient underwent evaluation in the emergency department. Vital signs upon arrival show blood pressure 96/61, heart rate 128, respiratory rate 18, temp 97.8 F, and SpO2 of 98% on room air. EKG completed showing sinus tachycardia at 102 bpm. Labs completed and reviewed. CBC unremarkable. BMP showing hypokalemia with potassium of 3.0 and high anion gap metabolic acidosis with chloride of 103, bicarb of 20, anion gap of 16 with acute kidney injury with BUN of 26, creatinine 1.60, GFR of 34. Blood glucose was 102. Lactic acid was 2.0. Liver profile unremarkable. Influenza A, influenza B, RSV, and COVID PCR negative. Patient mated under services with consultation to infectious disease. Review of systems: Pertinent positives and negatives as discussed in HPI, a complete review of systems was performed and all other systems are negative. Physical exam: Vital signs reviewed and stable. General: Nontoxic, no distress and appears stated age. Derm: Skin warm and dry, normal coloration for ethnicity. Patient with blistering scabbed rash covering chin and extending downwards into neck and upwards into lower lip and upper lip. Rash dark purplish-red in color with dry raised scabs. No open lesions or drainage at this time. Mild erythema and edema surrounding, no palpable abscess noted. Head: Atraumatic, normocephalic and symmetric. Eyes: EOM's intact, no lid lag, and anicteric sclera Mouth: no lip lesions, mucus membranes moist Cardiovascular: regular rate and rhythm with normal S1S2, no murmur, positive posterior tibial pulses bilaterally, and cap refill < 2 seconds. Lungs: Respirations even, regular, and unlabored on room air. Lungs CTA bilaterally, no rhonchi, no rales, no wheezing, and no accessory muscle usage. Abdominal: soft, nontender to palpation, no guarding, no appreciable organomegaly Ext: ROM intact. No gross muscle atrophy, no edema, no contractures Neuro: Speech clear, face symmetrical and CN II-XII grossly intact with no noted focal neuro deficits Psych: Alert and oriented to person, place, time, and situation. Appropriate and pleasant affect. Assessment and Plan of Care: Severe impetigo with surrounding cellulitis, failed outpatient treatment Sepsis on arrival, secondary to above -IV antibiotics with Unasyn 3 g every 8 hours and vancomycin pharmacy to dose for renal function. Monitor renal function and vancomycin trough closely for any signs/symptoms of vancomycin associated renal toxicity. -Consult placed to infectious disease. -Symptomatic care and pain management with Tylenol 650 mg every 6 hours as needed for mild pain/fever,. -Follow-up on wound culture and blood culture results. -Mupirocin cream 2% apply to rash BID. Hypertension -Monitor vital signs and continue daily medication regimen with amlodipine 10 mg nightly. Hypothyroidism -Continue levothyroxine 137 mcg Sundays/Tuesdays/Wednesdays/Fridays/Saturdays and 150 mcg on Mondays and . Obstructive sleep apnea -Continue CPAP nightly and while napping. Seizure Disorder -Last seizure reported in 2009. Patient to continue-Lamictal 150 mg twice alfred y. Maintain seizure precautions. Data and imaging reviewed: As stated above in HPI The patient is admitted with an anticipated greater than 2 midnight stay for evaluation of impetigo with surrounding cellulitis after failing outpatient treatment CODE STATUS Full code DVT prophylaxis: Heparin Anticipated discharge date: Pending clinical course Anticipated discharge place: Home Patient was seen independently by Nurse Practitioner. This document was prepared using [employer] dictation software. Please allow for errors in forestry conservation worker while rare they do occur. Hunter Nash NP rendered care for this patient independently, reviewed the findings and plan as documented in the note above and agree with plan. I did not physically speak with or examine the patient on this date. Past Medical History Past Medical History: CVA/TIA, GERD/Reflux, Hypertension, Seizure Disorder, Sleep Apnea/CPAP/BIPAP, Thyroid Disorder Additional Past Medical History / Comment(s): last seizure in 2009 after having stroke in 2005, cpap History of Any Multi-Drug Resistant Organisms: None Reported Past Surgical History: Orthopedic Surgery Additional Past Surgical History / Comment(s): thyroidecomy, right knee torn meniscus, arthroscopic on left knee, colonoscopy Past Anesthesia/Blood Transfusion Reactions: No Reported Reaction Additional Past Anesthesia/Blood Transfusion Reaction / Comment(s): no blood tra nsfusion Past Psychological History: No Psychological Hx Reported Smoking Status: Never smoker Past Alcohol Use History: None Reported Past Drug Use History: None Reported - Past Family History Sister(s) Family Medical History: Cancer Additional Family Medical History / Comment(s): colon Medications and Allergies Home Medications Medication Instructions Recorded Confirmed Type Aspirin EC [Ecotrin Low Dose] 81 mg PO HS 12/05/18 05/13/24 History Calcium Carb/Vitamin D3/Vit K1 1 tab PO BID 12/05/18 05/13/24 History [Citracal Soft Chew] Cetirizine HCl [Zyrtec] 10 mg PO HS 12/05/18 05/13/24 History Dipyridamole-Aspirin 200-25 mg 1 cap PO BID 12/05/18 05/13/24 History [Aggrenox] Levothyroxine Sodium [Synthroid] 137 mcg PO SUTUWEFRSA 12/05/18 05/13/24 History Levothyroxine Sodium [Synthroid] 150 mcg PO MOTH 12/05/18 05/13/24 History amLODIPine [Norvasc] 10 mg PO HS 12/05/18 05/13/24 History calcitrioL [Rocaltrol] 0.25 mcg PO BID 12/05/18 05/13/24 History lamoTRIgine [LaMICtal] 150 mg PO BID 12/05/18 05/13/24 History Omeprazole [PriLOSEC] 20 mg PO DAILY 01/09/24 05/13/24 History Escitalopram [Lexapro] 5 mg PO DAILY 01/11/24 05/13/24 History Sulfamethox-Tmp 800-160Mg [Bactrim 1 tab PO BID 05/13/24 05/13/24 History DS 800-160 mg] Allergies Allergy/AdvReac Type Severity Reaction Status Date / Time No Known Allergies Allergy Verified 05/13/24 13:21 Physical Exam Vitals: Vital Signs Temp Pulse Resp BP Pulse Ox 05/13/24 15:35 96 18 135/74 95 05/13/24 14:10 97.9 F 104 H 18 127/78 95 05/13/24 12:18 97.8 F 128 H 18 96/61 98 Intake and Output 05/13/24 05/13/24 05/13/24 06:59 14:59 22:59 Other: Weight 79.379 kg Results CBC & Chem 7: 05/13/24 13:20 05/13/24 13:20 Labs: Abnormal Lab Results - Last 24 Hours (Table) 05/13/24 05/13/24 Range/Units 13:20 13:20 Lymphocytes # 0.6 L (1.0-4.8) k/uL Potassium 3.0 L (3.5-5.1) mmol/L Carbon Dioxide 20 L (22-30) mmol/L BUN 26 H (7-17) mg/dL Creatinine 1.60 H (0.52-1.04) mg/dL Glucose 102 H (74-99) mg/dL
[2024-05-13] MEDS: MUPIROCIN 2% OINT 22 GM TUBE TOPICAL SCH (18:13)
[2024-05-13] MEDS: AMPICILLIN-SULBACTAM 3 GM in SODIUM CHLORIDE 0.9% 100 ML IVPB SCH (18:57)
[2024-05-13] MEDS: lamoTRIgine 100 MG TAB PO SCH (20:46)
[2024-05-13] MEDS: ASPIRIN 81 MG PO SCH (20:46)
[2024-05-13] MEDS: amLODIPine 10 MG TAB PO SCH (20:46)
[2024-05-14] MEDS: HEPARIN SODIUM,PORCINE 5,000 UNIT/ML 1 ML VIAL SQ SCH (00:22)
[2024-05-14] MEDS: LEVOTHYROXINE 75 MCG TAB PO SCH (06:04)
[2024-05-14 08:39] LABS: ALT 16 U/L (8-44); AST 18 U/L (13-35); Albumin 3.4 g/dL (3.8-4.9); Albumin/Globulin Ratio 1.42 Ratio (1.60-3.17); Alkaline Phosphatase 54 U/L (41-126); BUN/Creat Ratio 17.08 Ratio (12.00-20.00); Blood Urea Nitrogen 20.5 mg/dL (9.0-27.0); Carbon Dioxide 20.8 mmol/L (21.6-31.8); Chloride 111 mmol/L (96-109); Globulin 2.4 g/dL (1.6-3.3); Glucose 121 mg/dL (70-110); Potassium 3.6 mmol/L (3.5-5.5); Sodium 142 mmol/L (135-145); Total Bilirubin <0.2 mg/dL (0.3-1.2); Total Protein 5.8 g/dL (6.2-8.2)
[2024-05-14] MEDS: ESCITALOPRAM 5 MG TAB PO SCH (09:22)
[2024-05-14 10:14] LABS: HCT 33.3 % (37.2-46.3); HGB 10.9 g/dL (12.0-15.0); MCH 29.3 pg (27.0-32.0); MCHC 32.7 g/dL (32.0-37.0); MCV 89.5 FL (80.0-97.0); Mean Platelet Volume 9.8 FL (9.5-12.2); NRBC Per 100 WBC 0 X 10*3/uL (0.00-0.01); Platelet Count 276 X 10*3/uL (140-440); RBC 3.72 X 10*6/uL (4.10-5.20); RDW 13.5 % (11.5-14.5); WBC 4.59 X 10*3/uL (4.50-10.00)
[2024-05-14] MEDS: VANCOMYCIN 1,500 MG in SODIUM CHLORIDE 0.9% 500 ML 500 ML IVPB SCH (10:54)
--- NOTE | 2024-05-14 12:02 | P.PN ---
Subjective Progress Note Date: 05/14/24 Hospital Course: Patient is a very pleasant 63-year-old female with a past medical history of CVA in 2005, seizure disorder following stroke with last seizure being in 2009, hypothyroidism status post thyroidectomy, hypertension, obstructive sleep apnea CPAP dependent nightly, and GERD. She presented to the emergency department for evaluation of facial wound. Patient reports that on she kissed her boyfriend and began to notice some irritation from his pineda on on her lower lip/chin and which worsened after sleeping with her CPAP overnight. She states on Tuesday she noticed that rash began blistering and scabbing and she went to her doctor's office/clinic on Tuesday for evaluation. Patient states she was diagnosed with impetigo and started on Bactrim and took as prescribed but reports the rash and scabbing continued to worsen and spread throughout her entire chin, lower lip, now into her upper lip and into her mouth. She states having intermittent fevers at home and overall just feeling fatigued almost similar to how she felt when she had COVID long-hauler syndrome. Patient denies having any headache, lightheadedness, dizziness, changes in vision or hearing, chest pain, palpitations, shortness of breath, cough or congestion, or experiencing any numbness/tingling/weakness in her extremities. She denies having this rash in any other location and denies ever experiencing a similar rash in the past. Upon arrival to our facility, patient underwent evaluation in the emergency department. Vital signs upon arrival show blood pressure 96/61, heart rate 128, respiratory rate 18, temp 97.8 F, and SpO2 of 98% on room air. EKG completed showing sinus tachycardia at 102 bpm. Labs completed and reviewed. CBC unremarkable. BMP showing hypokalemia with potassium of 3.0 and high anion gap metabolic acidosis with chloride of 103, bicarb of 20, anion gap of 16 with acute kidney injury with BUN of 26, creatinine 1.60, GFR of 34. Blood glucose was 102. Lactic acid was 2.0. Liver profile unremarkable. Influenza A, influenza B, RSV, and COVID PCR negative. Patient mated under services with consultation to infectious disease. Physical exam: Patient was seen and fully evaluated at bedside this morning. She reports feeling slightly better this morning stating the pain in the roof of her mouth and tongue has improved and she feels some of the redness surrounding her rash is also improved. Vital signs reviewed and stable. General: Nontoxic, no distress and appears stated age. Derm: Skin warm and dry, normal coloration for ethnicity. Patient with b listering scabbed rash covering chin and extending downwards into neck and upwards into lower lip and upper lip. Rash dark purplish-red in color with dry raised scabs. No open lesions or drainage at this time. Mild erythema and edema surrounding, no palpable abscess noted. Head: Atraumatic, normocephalic and symmetric. Eyes: EOM's intact, no lid lag, and anicteric sclera Mouth: no lip lesions, mucus membranes moist Cardiovascular: regular rate and rhythm with normal S1S2, no murmur, positive posterior tibial pulses bilaterally, and cap refill < 2 seconds. Lungs: Respirations even, regular, and unlabored on room air. Lungs CTA bilaterally, no rhonchi, no rales, no wheezing, and no accessory muscle usage. Abdominal: soft, nontender to palpation, no guarding, no appreciable organomegaly Ext: ROM intact. No gross muscle atrophy, no edema, no contractures Neuro: Speech clear, face symmetrical and CN II-XII grossly intact with no noted focal neuro deficits Psych: Alert and oriented to person, place, time, and situation. Appropriate and pleasant affect. Assessment and Plan of Care: Severe impetigo with surrounding cellulitis, failed outpatient treatment Sepsis on arrival, secondary to above -IV antibiotics with Unasyn 3 g every 8 hours and patient started on acyclovir 800 mg every 8 hours. -Infectious disease following, discussed plan of care. Order placed for herpes simplex virus PCR, vancomycin to be discontinued and patient to continue with Unasyn and be started on acyclovir at this time. -Symptomatic care and pain management with Tylenol 650 mg every 6 hours as needed for mild pain/fever,. -Wound culture, blood culture and varicella PCR pending.. -Mupirocin cream 2% apply to rash BID. PABLITO -PABLITO improving with gentle IV fluid hydration. Continue-0.9% normal saline at 75 cc/h for an additional 24 hours and follow-up with morning on renal function with repeat morning BMP. Hypertension -Monitor vital signs and continue daily medication regimen with amlodipine 10 mg nightly. Hypothyroidism -Continue levothyroxine 137 mcg Sundays/Tuesdays/Wednesdays/Fridays/Saturdays and 150 mcg on Mondays and . Obstructive sleep apnea -Continue CPAP nightly and while napping. Seizure Disorder -Last seizure reported in 2009. Patient to continue-Lamictal 150 mg twice daily. Maintain seizure precautions. Data and imaging reviewed: Wound culture, blood culture and varicella PCR pending. Morning labs reviewed. CBC showing stable normocytic anemia with hemoglobin of 10.9. BMP showing non-anion gap metabolic acidosis with chloride of 111, bicarb of 20.8, and anion gap of 10.20. Renal function improving with BUN of 20.5, creatinine of 1.2, GFR of 51. Blood glucose 121. Magnesium 2.0. Liver profile unremarkable with exception of mild hypoalbuminemia with albumin of 3.4. Vital signs reviewed. Blood pressure 117/73, heart rate 90, respiratory rate 16, temp 98.1 F, and SpO2 of 97% on room air. CODE STATUS Full code DVT prophylaxis: Heparin Anticipated discharge date: Pending clinical course Anticipated discharge place: Home Patient was seen independently by Nurse Practitioner. This document was prepared using [employer] dictation software. Please allow for errors in material damage appraiser while rare they do occur. Hunter Nash NP rendered care for this patient independently, reviewed the findings and plan as documented in the note above and agree with plan. I did not physically speak with or examine the patient on this date. Objective - Vital Signs Vital signs: Vital Signs Temp 98.1 F 05/14/24 07:00 Pulse 90 05/14/24 07:00 Resp 16 05/14/24 07:00 BP 117/73 05/14/24 07:00 Pulse Ox 97 05/14/24 07:00 FiO2 Intake & Output 05/13/24 05/14/24 05/14/24 18:59 06:59 18:59 Weight 79.379 kg 79.379 kg Other: Voiding Method Diaper # Voids 2 - Labs CBC & Chem 7: 05/14/24 05:19 05/14/24 05:19 Labs: Abnormal Lab Results - Last 24 Hours (Table) 05/13/24 05/13/24 05/14/24 Range/Units 13:20 13:20 05:19 Lymphocytes # 0.6 L (1.0-4.8) k/uL Potassium 3.0 L (3.5-5.1) mmol/L Chloride 111 H (96-109) mmol/L Carbon Dioxide 20 L 20.8 L (22-30) mmol/L BUN 26 H (7-17) mg/dL Creatinine 1.60 H (0.52-1.04) mg/dL Est GFR (CKD-EPI) 51 L (>=60) Glucose 102 H 121 H (74-99) mg/dL Calcium 8.0 L (8.7-10.3) mg/dL Total Bilirubin <0.2 L (0.3-1.2) mg/dL Total Protein 5.8 L (6.2-8.2) g/dL Albumin 3.4 L (3.8-4.9) g/dL Albumin/Globulin Ratio 1.42 L (1.60-3.17) Ratio Microbiology - Last 24 Hours (Table) 05/13/24 15:27 Gram Stain - Preliminary Face
[2024-05-14] MEDS: ACYCLOVIR SODIUM 800 MG in SODIUM CHLORIDE 0.9% 250 ML IV SCH (14:15)
[2024-05-14] MEDS ORDERED: VANCOMYCIN 1,250 MG in SODIUM CHLORIDE 0.9% 250 ML IVPB SCH (16:00)
[2024-05-14] MEDS: PANTOPRAZOLE 40 MG TABLET PO SCH (20:25)
[2024-05-15 06:05] LABS: African American GFR (CKD) 69 (>60 ml/min/1.73 sqM); Non-African American GFR(CKD) 60 (>60 ml/min/1.73 sqM)
--- NOTE | 2024-05-15 06:07 | P.CONS ---
History of Present Illness - Reason for Consult Consult date: 05/14/24 Facial cellulitis, failed outpatient therapy Requesting physician: Hunter Nash - Chief Complaint chin area pain swelling redness x days - History of Present Illness Patient is a 63-year-old female with a past medical history of again for hypertension and seizure disorder sleep apnea reflux CVA TIA presenting to the hospital for evaluation of increasing swelling and discomfort to the chin area patient symptoms started during the blister on the lower lip and s ubsequently has involving most of her chin area patient was evaluated in the urgent care on 05/07/2024 has been diagnosed with impetigo and has been treated with Bactrim DS for 5 days however the patient did not have any improvement she did have persistent worsening of the rash involving her chin area she did have a burning pain associated with it which is moderate intensity without any radiation patient denies having any rash any other part of the body and denies any high-grade fever she was also complaining of some sores inside her mouth but denies any difficulty swallowing no nausea vomiting no abdominal pain or any diarrhea on presentation to the hospital the patient was afebrile no fever have been recorded subsequently patient was not tachycardic hypotensive or hypoxic she did have a white count of 4.59 creatinine is 1.6 0 repeat is 1.2 liver enzymes are normal influenza RSV COVID testing was negative he did have local cultures obtained and patient was started on vancomycin and Unasyn infectious disease was consulted for further management of antibiotic therapy Review of Systems Positive point and negatives has been mentioned in the HPI, complete review of systems was performed and all other systems are negative Past Medical History Past Medical History: CVA/TIA, GERD/Reflux, Hypertension, Seizure Disorder, Sleep Apnea/CPAP/BIPAP, Thyroid Disorder Additional Past Medical History / Comment(s): last seizure in 2009 after having stroke in 2005, cpap at night History of Any Multi-Drug Resistant Organisms: None Reported Past Surgical History: Orthopedic Surgery, Uterine Ablation Additional Past Surgical History / Comment(s): thyroidecomy, right knee torn meniscus, arthroscopic on left knee, colonoscopy Past Anesthesia/Blood Transfusion Reactions: No Reported Reaction Additional Past Anesthesia/Blood Transfusion Reaction / Comm: no blood transfusion Past Psychological History: No Psychological Hx Reported Smoking Status: Never smoker Past Alcohol Use History: None Reported Past Drug Use History: None Reported - Past Family History Sister(s) Family Medical History: Cancer Additional Family Medical History / Comment(s): colon Medications and Allergies Home Medications Medication Instructions Recorded Confirmed Type Aspirin EC [Ecotrin Low Dose] 81 mg PO HS 12/05/18 05/13/24 History Calcium Carb/Vitamin D3/Vit K1 1 tab PO BID 12/05/18 05/13/24 History [Citracal Soft Chew] Cetirizine HCl [Zyrtec] 10 mg PO HS 12/05/18 05/13/24 History Dipyridamole-Aspirin 200-25 mg 1 cap PO BID 12/05/18 05/13/24 History [Aggrenox] Levothyroxine Sodium [Synthroid] 137 mcg PO SUTUWEFRSA 12/05/18 05/13/24 History Levothyroxine Sodium [Synthroid] 150 mcg PO MOTH 12/05/18 05/13/24 History amLODIPine [Norvasc] 10 mg PO HS 12/05/18 05/13/24 History calcitrioL [Rocaltrol] 0.25 mcg PO BID 12/05/18 05/13/24 History lamoTRIgine [LaMICtal] 150 mg PO BID 12/05/18 05/13/24 History Omeprazole [PriLOSEC] 20 mg PO DAILY 01/09/24 05/13/24 History Escitalopram [Lexapro] 5 mg PO DAILY 01/11/24 05/13/24 History Sulfamethox-Tmp 800-160Mg [Bactrim 1 tab PO BID 05/13/24 05/13/24 History DS 800-160 mg] Allergies Allergy/AdvReac Type Severity Reaction Status Date / Time No Known Allergies Allergy Verified 05/13/24 13:21 Physical Exam Vitals: Vital Signs Temp Pulse Pulse Resp BP BP Pulse Ox 05/14/24 07:00 98.1 F 90 16 117/73 97 05/14/24 02:34 98.5 F 91 17 123/76 95 05/14/24 01:29 98.1 F 93 17 123/75 97 05/13/24 23:54 102 H 18 126/80 98 05/13/24 20:43 102 H 20 128/80 98 05/13/24 18:17 101 H 19 95 05/13/24 17:53 104 H 17 105/94 98 05/13/24 15:35 96 18 135/74 95 01/26/25 14:10 97.9 F 104 H 18 127/78 95 05/13/24 12:18 97.8 F 128 H 18 96/61 98 Intake and Output 05/13/24 05/14/24 05/14/24 22:59 06:59 14:59 Intake Total 118 Balance 118 Intake: Oral 118 Other: Voiding Method Diaper Toilet Diaper # Voids 2 Weight 79.379 kg GENERAL DESCRIPTION: Middle-aged male lying in bed, no distress. No tachypnea or accessory muscle of respiration use. HEENT: Shows Pallor , no scleral icterus. Oral mucous membrane is dry. No pharyngeal erythema or thrush NECK: Trachea central, no thyromegaly. LUNGS: Unlabored breathing. Clear to auscultation anteriorly. No wheeze or crackle. HEART: S1, S2, regular rate and rhythm. No loud murmur ABDOMEN: Soft, no tenderness , guarding or rigidity, no organomegaly EXTREMITIES: No edema of feet. SKIN: Lower lip and chin area did have a dry crusting rash with some blisters NEUROLOGICAL: The patient is awake, alert, oriented x3, mood and affect normal. Results CBC & Chem 7: 05/14/24 05:19 05/14/24 05:19 Labs: Abnormal Lab Results - Last 24 Hours (Table) 05/13/24 05/13/24 05/14/24 Range/Units 13:20 13:20 05:19 RBC 3.72 L (4.10-5.20) X 10*6/uL Hgb 10.9 L (12.0-15.0) g/dL Hct 33.3 L (37.2-46.3) % Lymphocytes # 0.6 L (1.0-4.8) k/uL Potassium 3.0 L (3.5-5.1) mmol/L Chloride (96-109) mmol/L Carbon Dioxide 20 L (22-30) mmol/L BUN 26 H (7-17) mg/dL Creatinine 1.60 H (0.52-1.04) mg/dL Est GFR (CKD-EPI) (>=60) Glucose 102 H (74-99) mg/dL Calcium (8.7-10.3) mg/dL Total Bilirubin (0.3-1.2) mg/dL Total Protein (6.2-8.2) g/dL Albumin (3.8-4.9) g/dL Albumin/Globulin Ratio (1.60-3.17) Ratio 05/14/24 Range/Units 05:19 RBC (4.10-5.20) X 10*6/uL Hgb (12.0-15.0) g/dL Hct (37.2-46.3) % Lymphocytes # (1.0-4.8) k/uL Potassium (3.5-5.1) mmol/L Chloride 111 H (96-109) mmol/L Carbon Dioxide 20.8 L (22-30) mmol/L BUN (7-17) mg/dL Creatinine (0.52-1.04) mg/dL Est GFR (CKD-EPI) 51 L (>=60) Glucose 121 H (74-99) mg/dL Calcium 8.0 L (8.7-10.3) mg/dL Total Bilirubin <0.2 L (0.3-1.2) mg/dL Total Protein 5.8 L (6.2-8.2) g/dL Albumin 3.4 L (3.8-4.9) g/dL Albumin/Globulin Ratio 1.42 L (1.60-3.17) Ratio Microbiology - Last 24 Hours (Table) 05/13/24 15:27 Gram Stain - Preliminary Face Assessment and Plan (1) Facial cellulitis Current Visit: Yes Status: Acute Code(s): L03.211 - CELLULITIS OF FACE SNOMED Code(s): 805257400 (2) Failure of outpatient treatment Current Visit: Yes Status: Acute Code(s): Z78.9 - OTHER SPECIFIED HEALTH STATUS SNOMED Code(s): 271606615 Plan: 1patient presented to hospital with rash to the lower lip and facial area and this patient symptom has been going on for almost a week failing outpatient oral Bactrim DS therapy features are suggestive mostly of extensive herpes but possible secondary bacterial infection 21 swab has been obtained for HSV DNA by PCR as well as local culture 3we will empirically start the patient on acyclovir continue Unasyn however discontinue vancomycin 4local care with dry Aquacel silver dressing We will follow on clinical condition and cultures to further adjust medication if needed Thank you for this consultation we will follow the patient along with you Dictation was produced using [employer] dictation software. please excuse any gr ammatical, word or spelling errors. Time with Patient: Greater than 30
[2024-05-15] MEDS: LACTOBACILLUS ACIDOPHILUS/PECT 1 EACH CAPSULE PO SCH (09:18)
[2024-05-15] MEDS: AMPICILLIN-SULBACTAM 3 GM in SODIUM CHLORIDE 0.9% 100 ML IVPB SCH (09:19)
[2024-05-15 09:31] LABS: HCT 34.7 % (34.0-46.0); HGB 10.9 gm/dL (11.4-16.0); Hypochromasia Slight; MCH 29.3 pg (25.0-35.0); MCHC 31.4 g/dL (31.0-37.0); MCV 93.3 fL (80.0-100.0); Mean Platelet Volume 8.2; Platelet Count 312 k/uL (150-450); RBC 3.72 m/uL (3.80-5.40); RDW 13.4 % (11.5-15.5); WBC 4.3 k/uL (3.8-10.6)
[2024-05-15 09:52] LABS: Anion Gap 11 mmol/L; Blood Urea Nitrogen 18 mg/dL (7-17); Calcium 7.6 mg/dL (8.4-10.2); Carbon Dioxide 21 mmol/L (22-30); Chloride 112 mmol/L (98-107); Glucose 92 mg/dL (74-99); Magnesium 1.8 mg/dL (1.6-2.3); Potassium 3.4 mmol/L (3.5-5.1); Sodium 144 mmol/L (137-145)
--- NOTE | 2024-05-15 10:25 | P.PN ---
Subjective Progress Note Date: 05/15/24 Hospital Course: Patient is a very pleasant 63-year-old female with a past medical history of CVA in 2005, seizure disorder following stroke with last seizure being in 2009, hypothyroidism status post thyroidectomy, hypertension, obstructive sleep apnea CPAP dependent nightly, and GERD. She presented to the emergency department for evaluation of facial wound. Patient reports that on she kissed her boyfriend and began to notice some irritation from his pineda on on her lower lip/chin and which worsened after sleeping with her CPAP overnight. She states on Tuesday she noticed that rash began blistering and scabbing and she went to her doctor's office/clinic on Tuesday for evaluation. Patient states she was diagnosed with impetigo and started on Bactrim and took as prescribed but reports the rash and scabbing continued to worsen and spread throughout her entire chin, lower lip, now into her upper lip and into her mouth. She states having intermittent fevers at home and overall just feeling fatigued almost similar to how she felt when she had COVID long-hauler syndrome. Patient denies having any headache, lightheadedness, dizziness, changes in vision or hearing, chest pain, palpitations, shortness of breath, cough or congestion, or experiencing any numbness/tingling/weakness in her extremities. She denies having this rash in any other location and denies ever experiencing a similar rash in the past. Upon arrival to our facility, patient underwent evaluation in the emergency department. Vital signs upon arrival show blood pressure 96/61, heart rate 128, respiratory rate 18, temp 97.8 F, and SpO2 of 98% on room air. EKG completed showing sinus tachycardia at 102 bpm. Labs completed and reviewed. CBC unremarkable. BMP showing hypokalemia with potassium of 3.0 and high anion gap metabolic acidosis with chloride of 103, bicarb of 20, anion gap of 16 with acute kidney injury with BUN of 26, creatinine 1.60, GFR of 34. Blood glucose was 102. Lactic acid was 2.0. Liver profile unremarkable. Influenza A, influenza B, RSV, and COVID PCR negative. Patient mated under services with consultation to infectious disease. Physical exam: Patient was seen and fully evaluated at bedside this morning. She reports continuing to feel better and rash is improving. She reports oral lesions/pain completely resolved. Vital signs reviewed and stable. General: Nontoxic, no distress and appears stated age. Derm: Skin warm and dry, normal coloration for ethnicity. Patient with blistering scabbed rash covering chin and extending downwards into neck and upwards into lower lip and upper lip. Rash dark purplish-red in color with dry raised scabs. No open lesions or drainage at this time. Mild erythema and edema surrounding, no palpable abscess noted. Head: Atraumatic, normocephalic and symmetric. Eyes: EOM's intact, no lid lag, and anicteric sclera Mouth: no lip lesions, mucus membranes moist Cardiovascular: regular rate and rhythm with normal S1S2, no murmur, positive posterior tibial pulses bilaterally, and cap refill < 2 seconds. Lungs: Respirations even, regular, and unlabored on room air. Lungs CTA bilaterally, no rhonchi, no rales, no wheezing, and no accessory muscle usage. Abdominal: soft, nontender to palpation, no guarding, no appreciable organomegaly Ext: ROM intact. No gross muscle atrophy, no edema, no contractures Neuro: Speech clear, face symmetrical and CN II-XII grossly intact with no noted focal neuro deficits Psych: Alert and oriented to person, place, time, and situation. Appropriate and pleasant affect. Assessment and Plan of Care: Severe impetigo with surrounding cellulitis, failed outpatient treatment Sepsis on arrival, secondary to above -IV antibiotics with Unasyn 3 g every 8 hours and acyclovir 800 mg every 8 hours. -Infectious disease following, discussed plan of care. Order placed for herpes simplex virus PCR, vancomycin to be discontinued and patient to continue with Unasyn and be started on acyclovir at this time. -Symptomatic care and pain management with Tylenol 650 mg every 6 hours as needed for mild pain/fever,. -Wound culture preliminarily positive for Staphylococcus epidermidis and Streptococcus mitis oralis. Blood culture showing no growth to date and varicella PCR pending. -Mupirocin cream 2% apply to rash BID. PABLITO -PABLITO improving with gentle IV fluid hydration. Continue-0.9% normal saline at 75 cc/h for an additional 24 hours and follow-up with morning on renal function with repeat morning BMP. Hypertension -Monitor vital signs and continue daily medication regimen with amlodipine 10 mg nightly. Hypothyroidism -Continue levothyroxine 137 mcg Sundays/Tuesdays/Wednesdays/Fridays/Saturdays and 150 mcg on Mondays and . Obstructive sleep apnea -Continue CPAP nightly and while napping. Seizure Disorder -Last seizure reported in 2009. Patient to continue-Lamictal 150 mg twice daily. Maintain seizure precautions. Data and imaging reviewed: Wound culture preliminarily positive for Staphylococcus epidermidis and Streptococcus mitis oralis. Blood culture showing no growth to date and varicella PCR pending. Morning labs reviewed. CBC showing stable normocytic anemia with hemoglobin of 10.9. BMP showing non-anion gap metabolic acidosis with chloride of 112, bicarb of 21, and anion gap of 11. Potassium 3.4. Magnesium 1.8. Vital signs reviewed. Blood pressure 142/85, heart rate 102, respiratory rate 17, temp 98.1 F, and SpO2 96% on room air. CODE STATUS Full code DVT prophylaxis: Heparin Anticipated discharge date: Pending clinical course Anticipated discharge place: Home Patient was seen independently by Nurse Practitioner. This document was prepared using [employer] dictation software. Please allow for errors in director of early childhood while rare they do occur. Hunter Nash NP rendered care for this patient independently, reviewed the findings and plan as documented in the note above and agree with plan. I did not physically speak with or examine the patient on this date. Objective - Vital Signs Vital signs: Vital Signs Temp 98.1 F 05/15/24 07:00 Pulse 102 H 05/15/24 07:00 Resp 17 05/15/24 07:00 BP 142/85 05/15/24 07:00 Pulse Ox 96 05/15/24 07:00 FiO2 Intake & Output 05/14/24 05/15/24 05/15/24 18:59 06:59 18:59 Intake Total 354 Balance 354 Intake: Oral 354 Other: Voiding Method Toilet Toilet Diaper Diaper # Voids 2 4 - Labs CBC & Chem 7: 05/15/24 05:15 05/15/24 05:15 Labs: Abnormal Lab Results - Last 24 Hours (Table) 05/14/24 Range/Units 05:19 RBC 3.72 L (4.10-5.20) X 10*6/uL Hgb 10.9 L (12.0-15.0) g/dL Hct 33.3 L (37.2-46.3) % Microbiology - Last 24 Hours (Table) 05/13/24 15:28 Blood Culture - Preliminary Blood 05/14/24 11:17 Gram Stain - Preliminary Face 05/13/24 15:27 Gram Stain - Preliminary Face Wound Culture - Preliminary Staphylococcus epidermidis Streptococcus mitis oralis
[2024-05-15 14:43] LABS: V. zoster Source Dermal - Face; Varicella zoster Virus by PCR Not detected (Not detected)
--- NOTE | 2024-05-15 16:17 | P.PN ---
Subjective Progress Note Date: 05/15/24 Principal diagnosis: Reason for follow-up is facial cellulitis/herpetic infection Patient is a 63-year-old female with a past medical history of again for hypertension and seizure disorder sleep apnea reflux CVA TIA presenting to the hospital for evaluation of increasing swelling and discomfort to the chin area patient has been diagnosed with cellulitis with a possible component of herpetic infection. On today's evaluation that is 05/15/2024, Patient is afebrile this morning patient denies having any chest pain shortness of breath or cough, the patient is currently on room air, patient denies any abdominal pain no diarrhea no nausea no vomiting patient pain to the chin area has slight decreased intensity. Patient white count is 4.3 creatinine 1.01 HSV 1 DNA PCR from the facial lesion came back positive Objective - Vital Signs Vital signs: Vital Signs Temp 98.1 F 05/15/24 07:00 Pulse 102 H 05/15/24 07:00 Resp 17 05/15/24 07:00 BP 142/85 05/15/24 07:00 Pulse Ox 96 05/15/24 07:00 FiO2 Intake & Output 05/14/24 05/15/24 05/15/24 18:59 06:59 18:59 Intake Total 354 118 Balance 354 118 Intake: Oral 354 118 Other: Voiding Method Toilet Toilet Toilet Diaper Diaper Diaper # Voids 2 4 - Exam GENERAL DESCRIPTION: Middle-age female lying in bed in no distress HEENT: Chin area swelling redness slightly decreased RESPIRATORY SYSTEM: Unlabored breathing , decreased breath sounds at bases HEART: S1 S2 regular rate and rhythm , ABDOMEN: Soft , no tenderness EXTREMITIES: No edema feet - Labs CBC & Chem 7: 05/15/24 05:15 05/15/24 05:15 Labs: Abnormal Lab Results - Last 24 Hours (Table) 05/15/24 05/15/24 Range/Units 05:15 05:15 RBC 3.72 L (3.80-5.40) m/uL Hgb 10.9 L (11.4-16.0) gm/dL Potassium 3.4 L (3.5-5.1) mmol/L Chloride 112 H (98-107) mmol/L Carbon Dioxide 21 L (22-30) mmol/L BUN 18 H (7-17) mg/dL Calcium 7.6 L (8.4-10.2) mg/dL Microbiology - Last 24 Hours (Table) 05/14/24 11:17 Gram Stain - Preliminary Face Wound Culture - Preliminary 05/13/24 15:28 Blood Culture - Preliminary Blood 05/13/24 15:27 Gram Stain - Preliminary Face Wound Culture - Preliminary Staphylococcus epidermidis Streptococcus mitis oralis Assessment and Plan (1) Facial cellulitis Current Visit: Yes Status: Acute Code(s): L03.211 - CELLULITIS OF FACE SNOMED Code(s): 466940448 (2) Failure of outpatient treatment Current Visit: Yes Status: Acute Code(s): Z78.9 - OTHER SPECIFIED HEALTH STATUS SNOMED Code(s): 965815556 Plan: 1patient presented to hospital with rash to the lower lip and facial area and this patient symptom has been going on for almost a week failing outpatient oral Bactrim DS therapy features are suggestive mostly of extensive herpes but possible secondary bacterial infection 2patient facial swab HSV DNA by PCR came back positive local culture currently pending 3patient to continue with acyclovir along with Unasyn and local care with dry Aquacel silver dressing Dictation was produced using [facility] dictation software. please excuse any grammatical, word or spelling errors. Time with Patient: Less than 30
[2024-05-15] MEDS: POTASSIUM CHLORIDE ER 20 MEQ TAB.ER PO STA (17:01)
[2024-05-16 08:38] LABS: HCT 35.1 % (37.2-46.3); HGB 11.4 g/dL (12.0-15.0); MCH 29.8 pg (27.0-32.0); MCHC 32.5 g/dL (32.0-37.0); MCV 91.6 FL (80.0-97.0); Mean Platelet Volume 9.6 FL (9.5-12.2); NRBC Per 100 WBC 0.03 X 10*3/uL (0.00-0.01); Platelet Count 325 X 10*3/uL (140-440); RBC 3.83 X 10*6/uL (4.10-5.20); RDW 13.7 % (11.5-14.5); WBC 3.95 X 10*3/uL (4.50-10.00)
[2024-05-16 08:51] LABS: Magnesium 1.6 mg/dL (1.5-2.4)
[2024-05-16 09:01] LABS: BUN/Creat Ratio 7.22 Ratio (12.00-20.00); Blood Urea Nitrogen 6.5 mg/dL (9.0-27.0); Calcium 7.5 mg/dL (8.7-10.3); Carbon Dioxide 22.2 mmol/L (21.6-31.8); Chloride 109 mmol/L (96-109); Glucose 88 mg/dL (70-110); Potassium 3.4 mmol/L (3.5-5.5); Sodium 145 mmol/L (135-145)
[2024-05-16] MEDS: POTASSIUM CHLORIDE ER 20 MEQ TAB.ER PO STA (11:16)
[2024-05-16] MEDS: MAGNESIUM SULFATE-D5W PMX 1 GM in DEXTROSE/WATER 1 100ML.BAG IVPB SCH (11:17)
--- NOTE | 2024-05-16 13:10 | P.DS ---
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 She presented to the emergency department for evaluation of facial rash/infection. Upon arrival to our facility, patient underwent evaluation in the emergency department. Vital signs upon arrival show blood pressure 96/61, heart rate 128, respiratory rate 18, temp 97.8 F, and SpO2 of 98% on room air. EKG completed showing sinus tachycardia at 102 bpm. Labs completed and reviewed. CBC unremarkable. BMP showing hypokalemia with potassium of 3.0 and high anion gap metabolic acidosis with chloride of 103, bicarb of 20, anion gap of 16 with acute kidney injury with BUN of 26, creatinine 1.60, GFR of 34. Blood glucose was 102. Lactic acid was 2.0. Liver profile unremarkable. Influenza A, influenza B, RSV, and COVID PCR negative. Patient mated under services with consultation to infectious disease. She was treated with IV antibiotics with Unasyn and acyclovir. Wound culture preliminarily positive for Staphylococcus epidermidis and Streptococcus mitis oralis. Blood culture showing no growth to date Varicella PCR Positive for HSV 1. Patient's skin lesions/rash improving. Infectious disease clearing patient from their standpoint for discharge recommending discharge home on doxycycline and acyclovir x 1 week and to follow-up outpatient in his office. Patient is medically optimized at this time, prescription sent for doxycycline 100 mg twice daily x 7 days and acyclovir 800 mg 3 times daily x 7 days. Patient instructed to follow-up outpatient with PCP in 1 to 2 days and with infectious disease in 1 week. Physical exam: Vital signs reviewed and stable. General: Nontoxic, no distress and appears stated age. Derm: Skin warm and dry, normal coloration for ethnicity. Patient with blistering scabbed rash covering chin and extending downwards into neck and upwards into lower lip and upper lip. Rash dark purplish-red in color with dry raised scabs. No open lesions or drainage at this time. Head: Atraumatic, normocephalic and symmetric. Eyes: EOM's intact, no lid lag, and anicteric sclera Mouth: no lip lesions, mucus membranes moist Cardiovascular: regular rate and rhythm with normal S1S2, no murmur, positive posterior tibial pulses bilaterally, and cap refill < 2 seconds. Lungs: Respirations even, regular, and unlabored on room air. Lungs CTA bilaterally, no rhonchi, no rales, no wheezing, and no accessory muscle usage. Abdominal: soft, nontender to palpation, no guarding, no appreciable organomegaly Ext: ROM intact. No gross muscle atrophy, no edema, no contractures Neuro: Speech clear, face symmetrical and CN II-XII grossly intact with no noted focal neuro deficits Psych: Alert and oriented to person, place, time, and situation. Appropriate and pleasant affect. A total of 35 minutes of time were spent preparing this complex discharge scott craven. Pt was discharged on 05/16/2024 at 12:58 PM. Patient was seen independently by Nurse Practitioner. This document was prepared using [employer] dictation software. Please allow for errors in special weapons and tactics officer while rare they do occur. Hunter Nash NP rendered care for this patient independently, reviewed the findings and plan as documented in the note above. I did not physically speak with or examine the patient on this date. Patient Condition at Discharge: Stable Plan - Discharge Summary Discharge Rx Participant: Yes New Discharge Prescriptions: New Acyclovir 800 mg PO TID 7 Days #21 tablet Doxycycline [Vibramycin] 100 mg PO BID 7 Days #14 capsule Continue lamoTRIgine [LaMICtal] 150 mg PO BID calcitrioL [Rocaltrol] 0.25 mcg PO BID amLODIPine [Norvasc] 10 mg PO HS Levothyroxine Sodium [Synthroid] 150 mcg PO MOTH Levothyroxine Sodium [Synthroid] 137 mcg PO SUTUWEFRSA Cetirizine HCl [Zyrtec] 10 mg PO HS Calcium Carb/Vitamin D3/Vit K1 [Citracal-D3 500 mg Soft Chew] 1 tab PO BID Dipyridamole-Aspirin 200-25 mg [Aggrenox 25MG -200MG] 1 cap PO BID Aspirin EC [Ecotrin Low Dose] 81 mg PO HS Escitalopram [Lexapro] 5 mg PO DAILY Omeprazole [PriLOSEC] 20 mg PO DAILY Discontinued Sulfamethox-Tmp 800-160Mg [Bactrim DS 800-160 mg] 1 tab PO BID Discharge Medication List Aspirin EC [Ecotrin Low Dose] 81 mg PO HS 12/05/18 [History] Calcium Carb/Vitamin D3/Vit K1 [Citracal-D3 500 mg Soft Chew] 1 tab PO BID 12/05/18 [History] Cetirizine HCl [Zyrtec] 10 mg PO HS 12/05/18 [History] Dipyridamole-Aspirin 200-25 mg [Aggrenox 25MG -200MG] 1 cap PO BID 12/05/18 [History] Levothyroxine Sodium [Synthroid] 137 mcg PO SUTUWEFRSA 12/05/18 [History] Levothyroxine Sodium [Synthroid] 150 mcg PO MOTH 12/05/18 [History] amLODIPine [Norvasc] 10 mg PO HS 12/05/18 [History] calcitrioL [Rocaltrol] 0.25 mcg PO BID 12/05/18 [History] lamoTRIgine [LaMICtal] 150 mg PO BID 12/05/18 [History] Omeprazole [PriLOSEC] 20 mg PO DAILY 01/09/24 [History] Escitalopram [Lexapro] 5 mg PO DAILY 01/11/24 [History] Acyclovir 800 mg PO TID 7 Days #21 tablet 05/16/24 [Rx] Doxycycline [Vibramycin] 100 mg PO BID 7 Days #14 capsule 05/16/24 [Rx] Follow up Appointment(s)/Referral(s): Steven Roman MD [Primary Care Provider] - 1-2 days Vonda Pringle MD [STAFF PHYSICIAN] - 1 Week Patient Instructions/Handouts: Cellulitis (GEN), Oral Herpes Simplex Virus Infections (GEN) Activity/Diet/Wound Care/Special Instructions: Activity: As tolerated. Diet: Resume regular diet Special Instructions: Take all of your medications as directed and remember to keep all of your doctor's appointments and follow-up as needed. Thank you for allowing us to participate in your care, it was truly a pleasure h aving you for our patient!!! Discharge Disposition: HOME SELF-CARE
[2024-05-16 13:54] VITALS: BP 122/73; PULSE 101; RESP 16; TEMP 98.4
--- NOTE | 2024-05-16 15:31 | CDI ---
Documentation Clarification Form Date: 05/16/2024 03:10:17 PM From: Madelin Bar RN CCDS Phone: [phone] Admit Date: 05/14/2024 09:54:00 AM Patient Name: Samia Edwards Visit Number: [id number] Discharge Date: ATTENTION: The Clinical Documentation Specialists (CDI) and [facility] Coding Staff appreciate your assistance in clarifying documentation. Please respond to the clarification below the line at the bottom and electronically sign. The CDI & [facility] Coding staff will review the response and follow-up if needed. Please note: Queries are made part of the Legal Health Record. If you have any questions, please contact the author of this message via ITS. Provider: Hunter Nash NP Sepsis is documented In the discharge summary which may lack sufficient clinical evidence/support in the medical record. Additional clarification is requested. History/Risk Factors: 63 y/o Female presents to the ED for evaluation of a rash states on 05/03 scratched her lip on her boyfriends pineda causing a small dry area and worsened after sleeping with her CPAP overnight. She stated on Tuesday she noticed that the rash began blistering and scabbing and she went to her doctors office/clinica on Tuesday and started on Bactrim and took as prescribed but reports the rash and scabbing continued to worsen and spread throughout her entire chin, lower wilmar now inot her upper lip and into her mouth. She states she has intermittent fevers at home and overall feeling fatigued, similar to her long haul COVID syndrome. Medical History: HTN, Hypothyroidism, JESSEE, Seizure disorder and CVA. 05/13/ . Clinical Indicators: VSS: B/P 96/61; HR 128; Temp 97.8F Oral; RR 18; SpO2 98% ra BMI 28.2kg Labs: 05/13 Wbc 7.1; 05/14 HSV I DNA PCR Detected A, Varicella Zoster Source Dermal face Treatment: 05/13 Vancomycin IVPB x 1; 05/13 05/15 Ampicillin IVPB Q8H; 05/13 Bactroban oint TID, 05/14 Vancomycin IVPB x 1; 05/14 05/16 Acyclovir IV Q8H; 05/15 0 05/16 Ampicillin IVPB Q6H, 05/13 05/15 0.9NS 75cchr/ IV After work up and study, please clarify which diagnosis is most appropriate? [ ] Sepsis ruled out [ X ] Sepsis is a valid diagnosis as evidence by the following: (Please add rationale): _ blood pressure 96/61, heart rate 128 and reports of fevers prior to arrival [ ] Other, please specify [ ] Unable to determine SIRS Criteria: 2 or more of the following may indicate SIRS Temperature < 96.8F (36C) or > 101.0F (38.3C) Heart Rate > 90 bpm Respiratory Rate > 20 breaths/min or PaCO2 < 32 mmHg White Blood Cell Count > 12,000 or < 4,000 cells/mm3 or > 10% bands (Template Last Reviewed: April 2023) MTDD
[2024-05-16 16:34] LABS: HSV I IgG Interp Positive (Negative)
--- NOTE | 2024-05-17 08:41 | P.PN ---
Subjective Progress Note Date: 05/16/24 Principal diagnosis: Reason for follow-up is facial cellulitis/herpetic infection Patient is a 63-year-old female with a past medical history of again for hypertension and seizure disorder sleep apnea reflux CVA TIA presenting to the hospital for evaluation of increasing swelling and discomfort to the chin area patient has been diagnosed with cellulitis with a possible component of herpetic infection. On today's evaluation that is 05/16/2024,the patient denies any fever or any chills, patient is breathing comfortably on room air, the patient denies chest pain shortness of breath and no significant cough, patient denies abdominal pain, no nausea vomiting or diarrhea. Patient pain to the chin area has decreased in intensity no drainage. Patient white count is 3.95, creatinine is 0.9 local culture positive for Streptococcus mitis and staph epi Objective - Vital Signs Vital signs: Vital Signs Temp 98.0 F 05/16/24 07:00 Pulse 93 05/16/24 07:00 Resp 15 05/16/24 07:00 BP 139/84 05/16/24 07:00 Pulse Ox 96 05/16/24 07:00 FiO2 Intake & Output 05/15/24 05/16/24 05/16/24 18:59 06:59 18:59 Intake Total 354 118 Balance 354 118 Intake: Oral 354 118 Other: Voiding Method Toilet Toilet Diaper Diaper # Voids 3 2 - Exam GENERAL DESCRIPTION: Middle-age female lying in bed in no distress HEENT: Chin area swelling redness slightly decreased RESPIRATORY SYSTEM: Unlabored breathing , decreased breath sounds at bases HEART: S1 S2 regular rate and rhythm , ABDOMEN: Soft , no tenderness EXTREMITIES: No edema feet - Labs CBC & Chem 7: 05/16/24 04:54 05/16/24 04:54 Labs: Abnormal Lab Results - Last 24 Hours (Table) 05/14/24 05/16/24 05/16/24 Range/Units 11:17 04:54 04:54 WBC 3.95 L (4.50-10.00) X 10*3/uL RBC 3.83 L (4.10-5.20) X 10*6/uL Hgb 11.4 L (12.0-15.0) g/dL Hct 35.1 L (37.2-46.3) % NRBC/100 WBC Diff 0.03 H (0.00-0.01) X 10*3/uL Potassium 3.4 L (3.5-5.5) mmol/L Anion Gap 13.80 H (4.00-12.00) mmol/L BUN 6.5 L (9.0-27.0) mg/dL BUN/Creatinine Ratio 7.22 L (12.00-20.00) Ratio HSV I DNA PCR DETECTED A (Not detected) Microbiology - Last 24 Hours (Table) 05/14/24 11:17 Gram Stain - Final Face Wound Culture - Final 05/13/24 15:28 Blood Culture - Preliminary Blood Assessment and Plan (1) Facial cellulitis Status: Acute Code(s): L03.211 - CELLULITIS OF FACE SNOMED Code(s): 029067 002 (2) Failure of outpatient treatment Status: Acute Code(s): Z78.9 - OTHER SPECIFIED HEALTH STATUS SNOMED Code(s): 217750792 Plan: 1patient presented to hospital with rash to the lower lip and facial area and this patient symptom has been going on for almost a week failing outpatient oral Bactrim DS therapy features are suggestive mostly of extensive herpes but possi ble secondary bacterial infection 2patient facial swab HSV DNA by PCR came back positive local culture currently pending 3patient did have some clinical improvement we will recommend a 7-day course of oral Valtrex and doxycycline on discharge this were discussed with PATTERN CHAIN MAKER SUPERVISOR for admitting team and the close outpatient follow-up Dictation was produced using [employer] dictation software. please excuse any grammatical, word or spelling errors. Time with Patient: Less than 30
== END 2024-05-16 16:31 | disposition home or self-care (01) | DRG 872 ==
LOC: EC 12:16 → 6NMEDSUR 14:36 → OBSVTOIN 05-14 09:54
PROVIDERS: ADMIT Student in an Organized Health Care Education/Training Program; ATTEND Student in an Organized Health Care Education/Training Program
DX: A41.9 Sepsis, unspecified organism (principal); E87.20 Acidosis, unspecified; E89.0 Postprocedural hypothyroidism; I10 Essential (primary) hypertension; G40.909 Epilepsy, unspecified, not intractable, without status epilepticus; L03.211 Cellulitis of face; N17.9 Acute kidney failure, unspecified; B00.9 Herpesviral infection, unspecified; E87.6 Hypokalemia; K21.9 Gastro-esophageal reflux disease without esophagitis; R21 Rash and other nonspecific skin eruption; G47.33 Obstructive sleep apnea (adult) (pediatric); L01.00 Impetigo, unspecified; Z79.890 Hormone replacement therapy; Z79.899 Other long term (current) drug therapy; Z86.16 Personal history of COVID-19; Z86.73 Personal history of transient ischemic attack (TIA), and cerebral infarction without residual deficits; Z20.822 Contact with and (suspected) exposure to COVID-19; Z79.82 Long term (current) use of aspirin
CPT/HCPCS: 36415; 80048; 80053; 83605; 83735; 85025; 85027; 86695; 87040; 87070; 87077; 87186; 87205; 87324; 87529; 87636; 87798; 93005; 96361; 96365; 96366; 96367; 99285